=== PATIENT | female | born 1960 | race Caucasian/White ===

== ENCOUNTER 2019-11-24 14:34 | Inpatient (IN) | payer MEDICAID ==
[~2019-11-24] VITALS: Ht 157.5 cm; Wt 109.5 kg
[2019-11-24 15:31] LABS: BASOPHILS # (AUTO) 0.1 X10'3 (0-0.2); BASOPHILS % (AUTO) 1.2 % (0-1); EOSINOPHILS # (AUTO) 0.1 X10'3 (0-0.9); EOSINOPHILS % (AUTO) 1.4 % (0-6); HEMATOCRIT 37.6 % (35.0-45.0); HEMOGLOBIN 12.6 g/dl (12.0-16.0); LYMPHOCYTES # (AUTO) 1.7 X10'3 (1.1-4.8); MEAN CORPUSCULAR HEMOGLOBIN 40.2 PG (27.0-31.0); MEAN CORPUSCULAR HGB CONC 33.5 g/dL (33.0-36.5); MEAN PLATELET VOLUME 8.6 FL (7.4-10.4); MONOCYTES # (AUTO) 0.4 X10'3 (0-0.9); MONOCYTES % (AUTO) 4.5 % (2-12); NEUTROPHILS # (AUTO) 5.9 X10'3 (1.8-7.7); NEUTROPHILS % (AUTO) 71.9 % (42-75); PLATELET COUNT 240 X10'3 (140-440); RED BLOOD COUNT 3.14 X10'6 (4.20-5.60); RED CELL DISTRIBUTION WIDTH 16.1 % (11.5-14.5); WHITE BLOOD COUNT 8.2 X10'3 (4.5-11.0)
[2019-11-24 15:52] LABS: ALANINE AMINOTRANSFERASE 224 U/L (12-78); ALBUMIN 2.3 G/DL (3.4-5.0); ALBUMIN/GLOBULIN RATIO 0.6 (1.1-1.5); ALKALINE PHOSPHATASE 244 IU/L (46-116); ANION GAP 18 (8-16); ANISOCYTOSIS 1+; ASPARTATE AMINO TRANSFERASE 357 U/L (10-37); BILIRUBIN,TOTAL 0.9 MG/DL (0.1-1.0); BLOOD UREA NITROGEN 7 MG/DL (7-18); BUN/CREATININE RATIO 8.9 (6.6-38.0); CALCIUM 8.5 MG/DL (8.5-10.1); CHLORIDE 97 MMOL/L (99-107); CREATININE 0.79 MG/DL (0.40-0.90); GLUCOSE 154 MG/DL (70-104); LARGE PLATELETS FEW; PLATELET ESTIMATE NORMAL; POTASSIUM 3.6 MMOL/L (3.5-5.1); SODIUM 137 MMOL/L (135-145); TOTAL CARBON DIOXIDE 22.1 MMOL/L (24-32); TOTAL PROTEIN 6.1 G/DL (6.4-8.2); eGFR 74 ML/MIN
[2019-11-24 16:00] LABS: MAGNESIUM 1.7 MG/DL (1.5-2.4)
[2019-11-24] MEDS ORDERED: normal saline 1000ml 1,000 ML IV ONE ×2 (16:05→17:50)
[2019-11-24] MEDS ORDERED: thiamine 100mg/ml 2ml inj. IV ONE ×2 (16:05→18:00)
[2019-11-24] MEDS ORDERED: folic acid 1mg/0.2ml inj IV ONE (16:05)
[2019-11-24 16:08] LABS: CLARITY,URINE CLEAR (Clear); COLOR,URINE YELLOW (Yellow); GLUCOSE, URINE NEGATIVE (Neg); KETONES,URINE NEGATIVE (Neg); LEUKOCYTE ESTERASE ,URINE NEGATIVE (Neg); NITRITES, URINE NEGATIVE (Neg); OCCULT BLOOD,URINE LARGE (Neg); PROTEIN,URINE NEGATIVE (Neg)
[2019-11-24 16:13] LABS: UA COLLECTION TYPE STRAIGHT CATH
[2019-11-24 16:17] LABS: HYALINE CASTS 0-3 /LPF (NEGATIVE); MUCUS STRANDS FEW /LPF (Neg); SQUAMOUS EPITHELIAL CELL,UR MODERATE /LPF (FEW)
[2019-11-24 16:18] LABS: BACTERIA,URINE 1+ /HPF (Neg); RBC,URINE 50-100 /HPF (0-2); WBC,URINE 0-4 /HPF (0-4)
[2019-11-24 17:05] LABS: ETHANOL 0.068 GM/DL (0.0-0.010)
[2019-11-24] MEDS ORDERED: TRAZ-256 PO (17:58)
[2019-11-24] MEDS ORDERED: NICO-687 TP (17:58)
[2019-11-24] MEDS ORDERED: CHOL10002 PO (17:58)
[2019-11-24] MEDS ORDERED: ATEN50TA2 PO (17:58)
[2019-11-24] MEDS ORDERED: LEVO200T8 PO (17:58)
[2019-11-24] MEDS ORDERED: acetaminophen 650mg rectal suppository RC PRN (18:00)
[2019-11-24] MEDS ORDERED: potassium Cl 20 mEq SR tablet PO PRN ×2 (18:00)
[2019-11-24] MEDS ORDERED: magnesium Cl slow-release 64mg tablet PO PRN (18:00)
[2019-11-24] MEDS ORDERED: diphenhydrAMINE 50 mg/ml inj IV PRN (18:00)
[2019-11-24] MEDS ORDERED: ondansetron/PF 4mg/2ml inj IV PRN (18:00)
[2019-11-24] MEDS ORDERED: magnesium hydroxide 30ml (MOM) UD suspension PO PRN (18:00)
[2019-11-24] MEDS ORDERED: haloperidol 5mg tablet PO PRN (18:00)
[2019-11-24] MEDS ORDERED: potassium CL 10mEq/100ml bag 100 ML IV PRN ×2 (18:00)
[2019-11-24] MEDS ORDERED: morphine 2 MG/ML inj. syringe IV PRN ×2 (18:00)
[2019-11-24] MEDS ORDERED: haloperidol lactate 5mg/ml inj IM PRN (18:00)
[2019-11-24] MEDS ORDERED: magnesium 4gm in 100ml NS 100 ML IV PRN (18:00)
[2019-11-24] MEDS ORDERED: mag hydrox/Alum hydrox/simeth 30ml oral suspension PO PRN (18:00)
[2019-11-24] MEDS ORDERED: bisacodyl 10mg suppository rectal RC PRN (18:00)
[2019-11-24] MEDS ORDERED: magnesium 2GM in 50ml NS 50 ML IV PRN (18:00)
[2019-11-24] MEDS ORDERED: dextrose 50%-water 50ml dispensing syringe IV PRN (18:00)
[2019-11-24] MEDS ORDERED: diphenhydrAMINE 25mg capsule PO PRN (18:00)
[2019-11-24] MEDS ORDERED: metoclopramide 5 mg/ml inj IV PRN (18:00)
[2019-11-24] MEDS ORDERED: acetaminophen 325mg tablet PO PRN ×2 (18:00)
[2019-11-24 18:26] LABS: HEMOGLOBIN A1C 5.6 % (4.5-6.2)
[2019-11-24] MEDS: dextrose 5%-normal saline 1,000 ML IV SCH (19:13)
--- NOTE | 2019-11-24 19:47 | NUR ---
Patient in room ED 9. I have received report from Adolph IVEY and had the opportunity to ask questions and assume patient care.
[2019-11-24] MEDS: K and/or MAG REPLACEMENT MC SCH (20:00)
[2019-11-24] MEDS: LORazepam 2 mg/ml vial IV PRN (22:19)
[2019-11-24] MEDS: HYDROcodone/acetaminophen 5mg/325mg tablet PO PRN (22:22)
[2019-11-24] MEDS: traZODone 50mg tablet PO SCH (22:22)
[2019-11-24] MEDS: heparin, porcine 5000 units/ml vial SQ SCH (22:23)
[2019-11-24] MEDS: lactulose 20gm/30ml cup PO SCH (23:03)
[2019-11-25] MEDS: dextrose 5%-normal saline 1,000 ML IV SCH ×4 (00:40→21:38)
[2019-11-25 03:00] VITALS: BP 110/56
[2019-11-25] MEDS: lactulose 20gm/30ml cup PO SCH ×4 (03:02→21:37)
[2019-11-25] MEDS: LORazepam 2 mg/ml vial IV PRN ×3 (03:47→21:47)
[2019-11-25] MEDS: HYDROcodone/acetaminophen 10/325mg tab PO PRN ×3 (03:48→21:47)
[2019-11-25 03:54] LABS: BASOPHILS # (AUTO) 0.1 X10'3 (0-0.2); BASOPHILS % (AUTO) 0.8 % (0-1); EOSINOPHILS # (AUTO) 0.2 X10'3 (0-0.9); EOSINOPHILS % (AUTO) 1.8 % (0-6); HEMATOCRIT 35.6 % (35.0-45.0); HEMOGLOBIN 11.8 g/dl (12.0-16.0); LYMPHOCYTES # (AUTO) 2.1 X10'3 (1.1-4.8); LYMPHOCYTES % (AUTO) 25.5 % (21-51); MEAN CORPUSCULAR HEMOGLOBIN 39.6 PG (27.0-31.0); MEAN CORPUSCULAR HGB CONC 33.2 g/dL (33.0-36.5); MEAN CORPUSCULAR VOLUME 119.1 FL (78-98); MEAN PLATELET VOLUME 9.1 FL (7.4-10.4); MONOCYTES # (AUTO) 0.5 X10'3 (0-0.9); MONOCYTES % (AUTO) 5.8 % (2-12); NEUTROPHILS # (AUTO) 5.5 X10'3 (1.8-7.7); NEUTROPHILS % (AUTO) 66.1 % (42-75); PLATELET COUNT 232 X10'3 (140-440); RED BLOOD COUNT 2.99 X10'6 (4.20-5.60); RED CELL DISTRIBUTION WIDTH 16.2 % (11.5-14.5); WHITE BLOOD COUNT 8.4 X10'3 (4.5-11.0)
[2019-11-25 04:09] LABS: ALANINE AMINOTRANSFERASE 217 U/L (12-78); ALBUMIN 2.4 G/DL (3.4-5.0); ALBUMIN/GLOBULIN RATIO 0.7 (1.1-1.5); ALKALINE PHOSPHATASE 241 IU/L (46-116); AMYLASE 19 U/L (25-115); ANION GAP 9 (8-16); ASPARTATE AMINO TRANSFERASE 415 U/L (10-37); BILIRUBIN,TOTAL 1.2 MG/DL (0.1-1.0); BLOOD UREA NITROGEN 8 MG/DL (7-18); BUN/CREATININE RATIO 7.8 (6.6-38.0); CALCIUM 8.4 MG/DL (8.5-10.1); CHLORIDE 101 MMOL/L (99-107); CHOL/HDL RATIO 5.4 (0.00-4.99); CHOLESTEROL 215 MG/DL (0-200); CREATININE 1.02 MG/DL (0.40-0.90); GLUCOSE 114 MG/DL (70-104); HDL CHOLESTEROL 40 MG/DL (35-60); LDL CHOLESTEROL 113 MG/DL (50-100); MAGNESIUM 1.6 MG/DL (1.5-2.4); PHOSPHORUS 2.7 MG/DL (2.3-4.5); SODIUM 138 MMOL/L (135-145); TOTAL PROTEIN 5.9 G/DL (6.4-8.2); TRIGLYCERIDES 319 MG/DL (20-135); eGFR 55 ML/MIN
[2019-11-25 04:14] LABS: ANISOCYTOSIS 1+
[2019-11-25 04:45] LABS: PLATELET ESTIMATE NORMAL
[2019-11-25 06:00] VITALS: BP 145/60
--- NOTE | 2019-11-25 06:29 | NUR ---
Problems reprioritized. Patient report given, questions answered & plan of care reviewed with Ruel IVEY.
--- NOTE | 2019-11-25 06:36 | NUR ---
Patient in room PCU 3013. I have received report from Farhan IVEY and had the opportunity to ask questions and assume patient care.
[2019-11-25] MEDS: K and/or MAG REPLACEMENT MC SCH ×2 (08:00→20:00)
[2019-11-25] MEDS: nystatin 15 GM powder TP SCH ×3 (08:25→21:39)
[2019-11-25] MEDS: thiamine 100mg tablet PO SCH (08:26)
[2019-11-25] MEDS: levoTHYROXINE 100mcg tablet PO SCH (08:26)
[2019-11-25] MEDS: folic acid 1mg tablet PO SCH (08:26)
[2019-11-25] MEDS: multivitamins, therapeutics tablet PO SCH (08:26)
[2019-11-25] MEDS: vitamin D (cholecalciferol) 1,000 unit tablet PO SCH (08:26)
[2019-11-25] MEDS: nicotine 21mg patch - 24 hr TD SCH (08:27)
[2019-11-25] MEDS: heparin, porcine 5000 units/ml vial SQ SCH ×2 (08:27→21:38)
[2019-11-25] MEDS: atenolol 50mg tablet PO SCH (08:29)
--- NOTE | 2019-11-25 08:40 | NUR ---
PAGER ID: [phone] MESSAGE: [id number] Ramesh Miller: JANEL Lactic acid has increased to 6.0 from 3.4. thanks Britton
[2019-11-25 09:10] LABS: HIV ANTIBODY 1&2 RAPID NON-REACTIVE (Neg)
[2019-11-25] MEDS: levoTHYROXINE sod inj. 100mcg/5 ml vial IV SCH (10:40)
[2019-11-25 11:00] VITALS: BP 112/78
--- NOTE | 2019-11-25 13:15 | NUR ---
Paged Dr. Vasquez regarding Lactic acid of 4.5 PAGER ID: [phone] MESSAGE: [id number]. Ramesh Miller. Critical results of lactic acid of 4.5. Thank you. Rubi IVEY x [phone]
[2019-11-25] MEDS: piperacillin/tazo 3.375gm/50ml 50 ML IV SCH ×3 (13:50→23:58)
[2019-11-25] MEDS ORDERED: VANCOMYCIN 1,500MG inj. 1,500 MG in normal saline 500ml IV soln 500 ML IV SCH (14:00)
[2019-11-25 15:00] VITALS: BP 112/78
[2019-11-25] MEDS: VANCOMYCIN 1,500MG inj. 1,500 MG in normal saline 500ml IV soln 300 ML IV SCH (15:17)
--- NOTE | 2019-11-25 15:25 | NUR ---
PAGER ID: [phone] MESSAGE: [id number] Ramesh Miller: CT is asking if you want PO Contrast or just IV Contrast. thanks Britton [phone]
[2019-11-25] MEDS: diatr meglu/diatrizoate 30ml oral sol.-(3 dose) bottle PO SCH ×3 (15:44→19:59)
--- NOTE | 2019-11-25 17:30 | NUR ---
PAGER ID: [phone] MESSAGE: [id number] Ramesh Miller: JANEL Lactic Acid is 4.2, trending down. thanks gal
[2019-11-25 18:00] VITALS: BP 118/82
--- NOTE | 2019-11-25 18:25 | NUR ---
Problems reprioritized. Patient report given, questions answered & plan of care reviewed with Farhan RN.
[2019-11-25] MEDS ORDERED: iohexol 350MG/ML 100ml bottle IV ONE (19:54)
[2019-11-25] MEDS: traZODone 50mg tablet PO SCH (21:39)
[2019-11-25 22:00] VITALS: BP 123/57
[2019-11-26] MEDS: lactulose 20gm/30ml cup PO SCH ×4 (01:15→21:05)
[2019-11-26] MEDS: VANCOMYCIN 1,500MG inj. 1,500 MG in normal saline 500ml IV soln 300 ML IV SCH ×2 (01:15→13:40)
[2019-11-26 03:00] VITALS: BP 119/75
[2019-11-26] MEDS: dextrose 5%-normal saline 1,000 ML IV SCH ×3 (03:20→17:00)
[2019-11-26] MEDS: LORazepam 2 mg/ml vial IV PRN ×2 (03:46→13:51)
[2019-11-26 05:51] LABS: BASOPHILS # (AUTO) 0.1 X10'3 (0-0.2); BASOPHILS % (AUTO) 1.1 % (0-1); EOSINOPHILS # (AUTO) 0.1 X10'3 (0-0.9); EOSINOPHILS % (AUTO) 2.4 % (0-6); HEMATOCRIT 33.7 % (35.0-45.0); HEMOGLOBIN 10.9 g/dl (12.0-16.0); LYMPHOCYTES # (AUTO) 1.2 X10'3 (1.1-4.8); MEAN CORPUSCULAR HEMOGLOBIN 39.2 PG (27.0-31.0); MEAN CORPUSCULAR HGB CONC 32.5 g/dL (33.0-36.5); MEAN CORPUSCULAR VOLUME 120.8 FL (78-98); MEAN PLATELET VOLUME 8.9 FL (7.4-10.4); MONOCYTES # (AUTO) 0.3 X10'3 (0-0.9); MONOCYTES % (AUTO) 5.3 % (2-12); NEUTROPHILS # (AUTO) 4.3 X10'3 (1.8-7.7); NEUTROPHILS % (AUTO) 71.2 % (42-75); PLATELET COUNT 192 X10'3 (140-440); RED BLOOD COUNT 2.79 X10'6 (4.20-5.60); RED CELL DISTRIBUTION WIDTH 16.4 % (11.5-14.5); WHITE BLOOD COUNT 6.1 X10'3 (4.5-11.0)
[2019-11-26 06:00] VITALS: BP 108/78
[2019-11-26 06:05] LABS: ALANINE AMINOTRANSFERASE 229 U/L (12-78); ALBUMIN 2.2 G/DL (3.4-5.0); ALBUMIN/GLOBULIN RATIO 0.6 (1.1-1.5); ALKALINE PHOSPHATASE 216 IU/L (46-116); AMYLASE 16 U/L (25-115); ANION GAP 9 (8-16); ASPARTATE AMINO TRANSFERASE 400 U/L (10-37); BILIRUBIN,TOTAL 1.1 MG/DL (0.1-1.0); BLOOD UREA NITROGEN 4 MG/DL (7-18); BUN/CREATININE RATIO 4.7 (6.6-38.0); CALCIUM 8.4 MG/DL (8.5-10.1); CHLORIDE 103 MMOL/L (99-107); CREATININE 0.86 MG/DL (0.40-0.90); GLUCOSE 118 MG/DL (70-104); MAGNESIUM 1.8 MG/DL (1.5-2.4); PHOSPHORUS 3.4 MG/DL (2.3-4.5); POTASSIUM 4.2 MMOL/L (3.5-5.1); SODIUM 138 MMOL/L (135-145); TOTAL CARBON DIOXIDE 26.3 MMOL/L (24-32); TOTAL PROTEIN 5.6 G/DL (6.4-8.2); eGFR 67 ML/MIN
--- NOTE | 2019-11-26 06:30 | NUR ---
Patient in room PCU 3013. I have received report from Farhan IVEY and had the opportunity to ask questions and assume patient care.
--- NOTE | 2019-11-26 06:39 | NUR ---
Problems reprioritized. Patient report given, questions answered & plan of care reviewed with Ruel IVEY
[2019-11-26] MEDS: piperacillin/tazo 3.375gm/50ml 50 ML IV SCH ×2 (07:33→16:55)
[2019-11-26] MEDS: multivitamins, therapeutics tablet PO SCH (07:33)
[2019-11-26] MEDS: folic acid 1mg tablet PO SCH (07:33)
[2019-11-26] MEDS: atenolol 50mg tablet PO SCH (07:33)
[2019-11-26] MEDS: thiamine 100mg tablet PO SCH (07:34)
[2019-11-26] MEDS: vitamin D (cholecalciferol) 1,000 unit tablet PO SCH (07:34)
[2019-11-26] MEDS: nicotine 21mg patch - 24 hr TD SCH (07:34)
[2019-11-26] MEDS: levoTHYROXINE sod inj. 100mcg/5 ml vial IV SCH (07:35)
[2019-11-26] MEDS: K and/or MAG REPLACEMENT MC SCH ×2 (07:35→20:00)
[2019-11-26] MEDS: nystatin 15 GM powder TP SCH ×3 (07:35→21:06)
[2019-11-26] MEDS: heparin, porcine 5000 units/ml vial SQ SCH ×2 (07:40→21:05)
[2019-11-26 11:00] VITALS: BP 125/70
[2019-11-26] MEDS: HYDROcodone/acetaminophen 10/325mg tab PO PRN ×2 (13:51→19:37)
[2019-11-26 15:00] VITALS: BP 122/78
[2019-11-26 17:28] LABS: HBSAG SCREEN Negative (Negative); HEP A AB, IGM Negative (Negative); HEPATITIS C ANTIBODY <0.1 s/co ratio (0.0-0.9)
[2019-11-26 18:00] VITALS: BP 120/88
[2019-11-26] MEDS ORDERED: LORazepam 2 mg/ml vial IV PRN (18:00)
--- NOTE | 2019-11-26 18:29 | NUR ---
Problems reprioritized. Patient report given, questions answered & plan of care reviewed with Lea IVEY.
--- NOTE | 2019-11-26 18:33 | NUR ---
Patient in room PCU 3013. I have received report from Britton IVEY and had the opportunity to ask questions and assume patient care.
[2019-11-26] MEDS: LORazepam 1 MG tablet PO PRN ×2 (19:35→23:15)
[2019-11-26] MEDS: lactobacillus rhamnosus 10,000 MMU CELLS/CAPSULE PO SCH (21:05)
[2019-11-26] MEDS: traZODone 50mg tablet PO SCH (21:05)
[2019-11-26 22:00] VITALS: BP 107/72
[2019-11-27] MEDS: HYDROcodone/acetaminophen 10/325mg tab PO PRN ×4 (00:04→17:13)
[2019-11-27] MEDS: piperacillin/tazo 3.375gm/50ml 50 ML IV SCH ×3 (00:04→16:37)
[2019-11-27] MEDS ORDERED: VANCOMYCIN LEVEL IV ONE (01:30)
[2019-11-27 02:00] VITALS: BP 110/69
[2019-11-27] MEDS: LORazepam 1 MG tablet PO PRN ×3 (02:44→17:13)
[2019-11-27] MEDS: lactulose 20gm/30ml cup PO SCH ×4 (02:44→20:09)
[2019-11-27] MEDS: VANCOMYCIN 1,500MG inj. 1,500 MG in normal saline 500ml IV soln 300 ML IV SCH ×2 (02:44→13:37)
[2019-11-27 02:45] LABS: BASOPHILS % (AUTO) 0.5 % (0-1); EOSINOPHILS # (AUTO) 0.2 X10'3 (0-0.9); HEMATOCRIT 32.8 % (35.0-45.0); HEMOGLOBIN 10.5 g/dl (12.0-16.0); LYMPHOCYTES # (AUTO) 1.4 X10'3 (1.1-4.8); LYMPHOCYTES % (AUTO) 20.8 % (21-51); MEAN CORPUSCULAR HEMOGLOBIN 39.4 PG (27.0-31.0); MEAN CORPUSCULAR HGB CONC 32.2 g/dL (33.0-36.5); MEAN CORPUSCULAR VOLUME 122.5 FL (78-98); MEAN PLATELET VOLUME 8.9 FL (7.4-10.4); MONOCYTES # (AUTO) 0.5 X10'3 (0-0.9); MONOCYTES % (AUTO) 7.1 % (2-12); NEUTROPHILS # (AUTO) 4.5 X10'3 (1.8-7.7); NEUTROPHILS % (AUTO) 68.6 % (42-75); PLATELET COUNT 197 X10'3 (140-440); RED BLOOD COUNT 2.67 X10'6 (4.20-5.60); RED CELL DISTRIBUTION WIDTH 16.5 % (11.5-14.5); WHITE BLOOD COUNT 6.5 X10'3 (4.5-11.0)
[2019-11-27] MEDS: dextrose 5%-normal saline 1,000 ML IV SCH ×2 (02:51→09:21)
[2019-11-27 02:52] LABS: ALANINE AMINOTRANSFERASE 213 U/L (12-78); ALBUMIN 2.2 G/DL (3.4-5.0); ALBUMIN/GLOBULIN RATIO 0.7 (1.1-1.5); ALKALINE PHOSPHATASE 209 IU/L (46-116); ANION GAP 8 (8-16); ASPARTATE AMINO TRANSFERASE 330 U/L (10-37); BILIRUBIN,TOTAL 1.2 MG/DL (0.1-1.0); BLOOD UREA NITROGEN 3 MG/DL (7-18); BUN/CREATININE RATIO 2.9 (6.6-38.0); CALCIUM 8.5 MG/DL (8.5-10.1); CHLORIDE 106 MMOL/L (99-107); CREATININE 1.04 MG/DL (0.40-0.90); GLUCOSE 95 MG/DL (70-104); POTASSIUM 3.9 MMOL/L (3.5-5.1); SODIUM 141 MMOL/L (135-145); TOTAL CARBON DIOXIDE 27.3 MMOL/L (24-32); TOTAL PROTEIN 5.5 G/DL (6.4-8.2); eGFR 54 ML/MIN
[2019-11-27 03:01] LABS: AMYLASE 17 U/L (25-115); MAGNESIUM 1.7 MG/DL (1.5-2.4); PHOSPHORUS 2.9 MG/DL (2.3-4.5); VANCOMYCIN,TROUGH 18.8 UG/ML (6.0-14.0)
[2019-11-27 06:00] VITALS: BP 100/66
[2019-11-27] MEDS: multivitamins, therapeutics tablet PO SCH (07:48)
[2019-11-27] MEDS: folic acid 1mg tablet PO SCH (07:48)
[2019-11-27] MEDS: thiamine 100mg tablet PO SCH (07:49)
[2019-11-27] MEDS: lactobacillus rhamnosus 10,000 MMU CELLS/CAPSULE PO SCH ×2 (07:49→20:10)
[2019-11-27] MEDS: atenolol 50mg tablet PO SCH (07:51)
[2019-11-27] MEDS: heparin, porcine 5000 units/ml vial SQ SCH ×2 (07:58→20:10)
[2019-11-27] MEDS: vitamin D (cholecalciferol) 1,000 unit tablet PO SCH (07:58)
[2019-11-27 07:59] LABS: ANISOCYTOSIS 1+; PLATELET ESTIMATE NORMAL; POLYCHROMASIA 1+; STOMATOCYTES 1+; TOTAL CELLS COUNTED 100
[2019-11-27] MEDS: nystatin 15 GM powder TP SCH ×3 (07:59→20:10)
[2019-11-27] MEDS: nicotine 21mg patch - 24 hr TD SCH (07:59)
[2019-11-27] MEDS: K and/or MAG REPLACEMENT MC SCH ×2 (08:01→18:48)
--- NOTE | 2019-11-27 08:15 | NUR ---
Problems reprioritized. Patient report given, questions answered & plan of care reviewed with Magui IVEY.
[2019-11-27] MEDS: levoTHYROXINE sod inj. 100mcg/5 ml vial IV SCH (08:22)
[2019-11-27 11:00] VITALS: BP 107/68
[2019-11-27 15:00] VITALS: BP 112/71
[2019-11-27 18:00] VITALS: BP 100/55
[2019-11-27] MEDS: traZODone 50mg tablet PO SCH (20:09)
[2019-11-27 22:00] VITALS: BP 97/65
[2019-11-28] MEDS: piperacillin/tazo 3.375gm/50ml 50 ML IV SCH ×2 (00:19→08:40)
[2019-11-28] MEDS: dextrose 5%-normal saline 1,000 ML IV SCH ×2 (00:19→13:52)
[2019-11-28 02:00] VITALS: BP 102/63
[2019-11-28] MEDS: VANCOMYCIN 1,500MG inj. 1,500 MG in normal saline 500ml IV soln 300 ML IV SCH (02:37)
[2019-11-28] MEDS: lactulose 20gm/30ml cup PO SCH ×3 (02:37→15:14)
[2019-11-28] MEDS: LORazepam 1 MG tablet PO PRN ×3 (03:00→15:14)
[2019-11-28 04:37] LABS: BASOPHILS % (AUTO) 0.8 % (0-1); EOSINOPHILS # (AUTO) 0.2 X10'3 (0-0.9); EOSINOPHILS % (AUTO) 3.2 % (0-6); HEMATOCRIT 29.5 % (35.0-45.0); HEMOGLOBIN 9.6 g/dl (12.0-16.0); LYMPHOCYTES # (AUTO) 1.2 X10'3 (1.1-4.8); LYMPHOCYTES % (AUTO) 19.9 % (21-51); MEAN CORPUSCULAR HEMOGLOBIN 39.7 PG (27.0-31.0); MEAN CORPUSCULAR HGB CONC 32.3 g/dL (33.0-36.5); MEAN CORPUSCULAR VOLUME 122.8 FL (78-98); MEAN PLATELET VOLUME 8.5 FL (7.4-10.4); MONOCYTES # (AUTO) 0.5 X10'3 (0-0.9); MONOCYTES % (AUTO) 9.3 % (2-12); NEUTROPHILS # (AUTO) 3.9 X10'3 (1.8-7.7); NEUTROPHILS % (AUTO) 66.8 % (42-75); PLATELET COUNT 178 X10'3 (140-440); RED CELL DISTRIBUTION WIDTH 16.8 % (11.5-14.5); WHITE BLOOD COUNT 5.9 X10'3 (4.5-11.0)
[2019-11-28 04:51] LABS: ALANINE AMINOTRANSFERASE 190 U/L (12-78); ALBUMIN 1.9 G/DL (3.4-5.0); ALBUMIN/GLOBULIN RATIO 0.6 (1.1-1.5); ALKALINE PHOSPHATASE 196 IU/L (46-116); ANION GAP 8 (8-16); ASPARTATE AMINO TRANSFERASE 305 U/L (10-37); BILIRUBIN,TOTAL 1.2 MG/DL (0.1-1.0); BLOOD UREA NITROGEN 3 MG/DL (7-18); BUN/CREATININE RATIO 2.5 (6.6-38.0); CALCIUM 8.5 MG/DL (8.5-10.1); CHLORIDE 108 MMOL/L (99-107); CREATININE 1.21 MG/DL (0.40-0.90); GLUCOSE 91 MG/DL (70-104); MAGNESIUM 1.6 MG/DL (1.5-2.4); PHOSPHORUS 3.7 MG/DL (2.3-4.5); POTASSIUM 3.7 MMOL/L (3.5-5.1); SODIUM 140 MMOL/L (135-145); TOTAL CARBON DIOXIDE 24.5 MMOL/L (24-32); TOTAL PROTEIN 5.1 G/DL (6.4-8.2); eGFR 45 ML/MIN
--- NOTE | 2019-11-28 06:11 | NUR ---
Problems reprioritized. Patient report given, questions answered & plan of care reviewed with Connie IVEY and Jahaira IVEY.
[2019-11-28 07:00] VITALS: BP 101/66
[2019-11-28 07:23] LABS: PLATELET ESTIMATE NORMAL; SPHEROCYTES 1+; STOMATOCYTES 1+
[2019-11-28 07:24] LABS: POLYCHROMASIA 1+
[2019-11-28] MEDS: K and/or MAG REPLACEMENT MC SCH (08:00)
--- NOTE | 2019-11-28 08:04 | NUR ---
Rm.2018X, Rio, pt. refuses DNR band and request limited code with compressions and medicine only, no intubation. - wants code status changed. Thank you Jahaira [phone]
[2019-11-28] MEDS: HYDROcodone/acetaminophen 5mg/325mg tablet PO PRN (08:19)
[2019-11-28] MEDS: nystatin 15 GM powder TP SCH ×2 (08:19→13:52)
[2019-11-28] MEDS: multivitamins, therapeutics tablet PO SCH (08:20)
[2019-11-28] MEDS: lactobacillus rhamnosus 10,000 MMU CELLS/CAPSULE PO SCH (08:20)
[2019-11-28] MEDS: folic acid 1mg tablet PO SCH (08:20)
[2019-11-28] MEDS: heparin, porcine 5000 units/ml vial SQ SCH (08:20)
[2019-11-28] MEDS: vitamin D (cholecalciferol) 1,000 unit tablet PO SCH (08:21)
[2019-11-28] MEDS: nicotine 21mg patch - 24 hr TD SCH (08:22)
[2019-11-28] MEDS: levoTHYROXINE 100mcg tablet PO SCH (08:23)
[2019-11-28] MEDS: thiamine 100mg tablet PO SCH (08:24)
[2019-11-28] MEDS: atenolol 50mg tablet PO SCH (08:24)
[2019-11-28 11:00] VITALS: BP 89/55
[2019-11-28] MEDS ORDERED: VANCOMYCIN LEVEL IV ONE (13:30)
--- NOTE | 2019-11-28 14:01 | NUR ---
Rm. 3013B, JANEL Miller critical [facility] trough of 30.3. Pt will transfer 1600.Jahaira 2025
--- NOTE | 2019-11-28 17:48 | NUR ---
Orientee documentation: I have reviewed and agree with interventions, assessments performed and documented by Jahaira Giron. Orientee Medication Administration: For this medication-pass time frame, medication were reviewed, dispensed, administered and documented per hospital policy by Jahaira GIRON.
[2019-11-28] MEDS ORDERED: LORazepam 1 MG tablet PO PRN (18:00)
[2019-11-28] MEDS ORDERED: LORazepam 2 mg/ml vial IV PRN (18:00)
[2019-12-02] MEDS ORDERED: VANCOMYCIN LEVEL IV ONE (01:30)
== END 2019-11-28 16:11 | DRG 280 ==
LOC: ER 14:34 → ED HOLD 17:57 → PCU 3S 20:26
PROVIDERS: ADMIT Family Medicine; ATTEND Family Medicine
DX: K70.10 Alcoholic hepatitis without ascites (principal); E03.9 Hypothyroidism, unspecified; E66.01 Morbid (severe) obesity due to excess calories; E87.2 Acidosis; F10.229 Alcohol dependence with intoxication, unspecified; F17.210 Nicotine dependence, cigarettes, uncomplicated; I10 Essential (primary) hypertension; K76.0 Fatty (change of) liver, not elsewhere classified; Z79.890 Hormone replacement therapy; Z91.19 Patient's noncompliance with other medical treatment and regimen; Z71.6 Tobacco abuse counseling; Z68.41 Body mass index [BMI] 40.0-44.9, adult
CPT/HCPCS: 36415; 71045; 71275; 74177; 76536; 76700; 80053; 80061; 80202; 80320; 81001; 82140; 82150; 82948; 83036; 83605; 83735; 83880; 84100; 84145; 84439; 84443; 84480; 84484; 85007; 85025; 85610; 86703; 86705; 86706; 86709; 86803; 87040; 87077; 87081; 87186; 87340; 93005; 93306; 96374; 96375; 97110; 97112; 97116; 97161; 97530; 99285; G0378; J1644; J2060; J2543; J3370; J3411; J3490; J7030; J7040; J7042; Q9963; Q9967

== ENCOUNTER 2020-07-30 08:12 | Inpatient (IN) | payer MEDICAID ==
[~2020-07-30] VITALS: Ht 160 cm; Wt 127.3 kg
[~2020-07-30 08:12] MED LIST: ATEN50TA2 PO; CHOL-35 PO; LEVO200T8 PO; NICO-687 TP; TRAZ-256 PO
[2020-07-30 09:07] LABS: BASOPHILS % (AUTO) 0.3 % (0-1); EOSINOPHILS % (AUTO) 0.1 % (0-6); HEMOGLOBIN 12.3 g/dl (12.0-16.0); LYMPHOCYTES # (AUTO) 2.7 X10'3 (1.1-4.8); LYMPHOCYTES % (AUTO) 15.2 % (21-51); MEAN CORPUSCULAR HEMOGLOBIN 33.4 PG (27.0-31.0); MEAN CORPUSCULAR HGB CONC 32.3 g/dL (33.0-36.5); MEAN CORPUSCULAR VOLUME 103.3 FL (78-98); MEAN PLATELET VOLUME 9.2 FL (7.4-10.4); MONOCYTES # (AUTO) 0.7 X10'3 (0-0.9); MONOCYTES % (AUTO) 4.2 % (2-12); NEUTROPHILS # (AUTO) 14.3 X10'3 (1.8-7.7); NEUTROPHILS % (AUTO) 80.2 % (42-75); PLATELET COUNT 190 X10'3 (140-440); RED BLOOD COUNT 3.67 X10'6 (4.20-5.60); RED CELL DISTRIBUTION WIDTH 14.8 % (11.5-14.5); WHITE BLOOD COUNT 17.8 X10'3 (4.5-11.0)
[2020-07-30 09:18] LABS: ALANINE AMINOTRANSFERASE 74 U/L (12-78); ALBUMIN 2.8 G/DL (3.4-5.0); ALBUMIN/GLOBULIN RATIO 0.7 (1.1-1.5); ALKALINE PHOSPHATASE 381 IU/L (46-116); ANION GAP 21 (8-16); ASPARTATE AMINO TRANSFERASE 157 U/L (10-37); BILIRUBIN,TOTAL 1.2 MG/DL (0.1-1.0); BLOOD UREA NITROGEN 18 MG/DL (7-18); BUN/CREATININE RATIO 10.6 (6.6-38.0); CALCIUM 8.7 MG/DL (8.5-10.1); CHLORIDE 91 MMOL/L (99-107); ETHANOL < 0.010 GM/DL (0.0-0.010); GLUCOSE 150 MG/DL (70-104); SODIUM 130 MMOL/L (135-145); TOTAL CARBON DIOXIDE 18.3 MMOL/L (24-32); TOTAL PROTEIN 6.8 G/DL (6.4-8.2); eGFR 31 ML/MIN
[2020-07-30 09:20] LABS: POTASSIUM 2.8 MMOL/L (3.5-5.1)
[2020-07-30] MEDS ORDERED: CefTRIAXone 2gm/D5W 50ml BAG 50 ML IV ONE (10:10)
[2020-07-30] MEDS ORDERED: normal saline 1000ML IV soln IV ONE (10:10)
[2020-07-30 10:14] LABS: CLARITY,URINE CLOUDY (Clear); COLOR,URINE BROWN (Yellow); UA COLLECTION TYPE STRAIGHT CATH
[2020-07-30 10:25] LABS: MUCUS STRANDS MANY /LPF (Neg); SQUAMOUS EPITHELIAL CELL,UR FEW /LPF (FEW); TRANSITIONAL EPI CELLS,URINE MANY /HPF; URINE AMPHETAMINE SCREEN NEGATIVE (Neg); URINE BARBITUATE SCREEN NEGATIVE (Neg); URINE BENZODIAZEPINES SCREEN NEGATIVE (Neg); URINE CANNABINOID SCREEN POSITIVE (Neg); URINE COCAINE SCREEN NEGATIVE (Neg); URINE METHADONE SCREEN NEGATIVE (Neg); URINE OPIATE SCREEN NEGATIVE (Neg); URINE PHENCYCLIDINE SCREEN NEGATIVE (Neg)
[2020-07-30 10:26] LABS: CELLULAR CAST 0-4 /LPF (NEGATIVE); COARSE GRANULAR CAST 0-3 /LPF (NEGATIVE); FINE GRANULAR CAST 0-3 /LPF (NEGATIVE)
[2020-07-30 10:27] LABS: RENAL CELLS, URINE MANY /HPF
[2020-07-30 10:31] LABS: BACTERIA,URINE FEW /HPF (Neg)
[2020-07-30 10:33] LABS: AMORPHOUS URATES 1+
--- NOTE | 2020-07-30 10:57 | NUR ---
VS UPDATED, O2 SAT 100% ON 1L. 02 REMOVED AT THIS TIME
[2020-07-30] MEDS: potassium Cl 10 mEq/100mL bag IV SCH ×2 (11:30→12:28)
[2020-07-30] MEDS ORDERED: LIDOcaine 2% 10ml TOPICAL JELLY (Urojet) TP ONE (11:45)
[2020-07-30] MEDS ORDERED: magnesium hydroxide 30ml (MOM) UD suspension PO PRN (11:45)
[2020-07-30] MEDS ORDERED: morphine 4 MG/ML inj SYRINge IV PRN (11:45)
[2020-07-30] MEDS ORDERED: morphine 2 MG/ML inj. syringe IV PRN (11:45)
[2020-07-30] MEDS ORDERED: acetaminophen 325mg tablet PO PRN (11:45)
[2020-07-30] MEDS ORDERED: ondansetron/PF 4mg/2ml inj IV PRN (11:45)
[2020-07-30] MEDS: ringers solution, lacted 1,000 ML IV SCH ×3 (12:29→21:46)
[2020-07-30] MEDS ORDERED: LEVO50TA8 PO (12:39)
--- NOTE | 2020-07-30 14:34 | NUR ---
DR PROCTOR CALLED AND NOTIFIED THAT PT'S BP WAS 75/56 AND 86/63 AFTER CUFF WAS READJUSTED AND BP RETAKEN. NEW ORDER FOR LITER OF NS A BOLUS WAS RECEIVED AND STARTED. DR PROCTOR INSISTED THAT NURSING WAX PATTERN ASSEMBLER BE NOTIFIED THAT PT NEED ICU BED IMMEDIATELY. NURSING WAX PATTERN ASSEMBLER NOTIFIED.
[2020-07-30] MEDS ORDERED: normal saline 1000ml 1,000 ML IV ONE ×2 (14:35→16:20)
--- NOTE | 2020-07-30 15:15 | NUR ---
Ariella simeon in ED - 07/30/20 at 1519 by GOPAL PT IS AWAKE AND ALERT, AMBULATED TO BATHROOM WITHOUT ASSISTANCE, CALLED HIS ROOM MATE AND WAS GIVEN SOMETHING TO EAT.
[2020-07-30] MEDS ORDERED: potassium Cl 20 mEq SR tablet PO PRN (16:15)
[2020-07-30] MEDS: piperacillin/tazo 3.375gm/50ml 50 ML IV SCH (16:30)
[2020-07-30] MEDS: K, MAG and/or Phos replacement - Verify level? MC SCH (17:26)
[2020-07-30 19:50] VITALS: BP 138/62
[2020-07-30 20:00] VITALS: BP 141/119
[2020-07-30 20:21] LABS: ANION GAP 17 (8-16); BLOOD UREA NITROGEN 14 MG/DL (7-18); BUN/CREATININE RATIO 11.9 (6.6-38.0); CALCIUM 7.2 MG/DL (8.5-10.1); CHLORIDE 101 MMOL/L (99-107); CREATININE 1.18 MG/DL (0.40-0.90); GLUCOSE 120 MG/DL (70-104); MAGNESIUM 1.3 MG/DL (1.5-2.4); SODIUM 138 MMOL/L (135-145); TOTAL CARBON DIOXIDE 19.7 MMOL/L (24-32); eGFR 47 ML/MIN
--- NOTE | 2020-07-30 20:21 | NUR ---
Patient in room ICU 2042. I have received report from grace moran and had the opportunity to ask questions and assume patient care. pt arrived on gurney to icu.
[2020-07-30 21:00] VITALS: BP 97/79
--- NOTE | 2020-07-30 21:20 | NUR ---
pt has 2 moderate size liquid bm's this evening. cdiff sample was sent.
--- NOTE | 2020-07-30 21:24 | NUR ---
notified dr butler to get electrolyte protocol on pt
[2020-07-30] MEDS ORDERED: magnesium 4gm in 100ml NS 100 ML IV PRN (21:25)
[2020-07-30] MEDS ORDERED: magnesium 2GM in 50ml NS 50 ML IV PRN (21:25)
[2020-07-30 22:00] VITALS: BP 126/95
--- NOTE | 2020-07-30 22:10 | NUR ---
pt goes back and forth between afib and sr. potassium and magnesium are currently being replaced
--- NOTE | 2020-07-30 22:37 | NUR ---
notfied dr lambert about lactic going from 5.2 to 5.4. got order to change lactated ringers to normal saline at 125ml/hr
[2020-07-30] MEDS: normal saline 1000ml 1,000 ML IV SCH (22:44)
[2020-07-30] MEDS: potassium Cl 40MEQ/1/2NS 520ml 520 ML IV PRN (22:57)
[2020-07-30 23:00] VITALS: BP 103/78
[2020-07-31] VITALS (21 sets, daily range): BP systolic 90–117; BP diastolic 42–79
[2020-07-31] MEDS: piperacillin/tazo 3.375gm/50ml 50 ML IV SCH ×4 (00:23→23:22)
--- NOTE | 2020-07-31 06:01 | NUR ---
Problems reprioritized. Patient report given, questions answered & plan of care reviewed with daisy moran.
[2020-07-31 06:09] LABS: BASOPHILS % (AUTO) 0.3 % (0-1); EOSINOPHILS # (AUTO) 0.1 X10'3 (0-0.9); EOSINOPHILS % (AUTO) 0.5 % (0-6); HEMATOCRIT 30.7 % (35.0-45.0); HEMOGLOBIN 10.1 g/dl (12.0-16.0); LYMPHOCYTES # (AUTO) 2.2 X10'3 (1.1-4.8); LYMPHOCYTES % (AUTO) 15.6 % (21-51); MEAN CORPUSCULAR HGB CONC 32.8 g/dL (33.0-36.5); MEAN CORPUSCULAR VOLUME 103.5 FL (78-98); MEAN PLATELET VOLUME 9.6 FL (7.4-10.4); MONOCYTES # (AUTO) 0.6 X10'3 (0-0.9); MONOCYTES % (AUTO) 4.6 % (2-12); PLATELET COUNT 111 X10'3 (140-440); RED BLOOD COUNT 2.96 X10'6 (4.20-5.60); RED CELL DISTRIBUTION WIDTH 15.2 % (11.5-14.5)
[2020-07-31 06:16] LABS: ALANINE AMINOTRANSFERASE 66 U/L (12-78); ALBUMIN 2.1 G/DL (3.4-5.0); ALBUMIN/GLOBULIN RATIO 0.7 (1.1-1.5); ALKALINE PHOSPHATASE 259 IU/L (46-116); ANION GAP 15 (8-16); ASPARTATE AMINO TRANSFERASE 219 U/L (10-37); BILIRUBIN,TOTAL 0.7 MG/DL (0.1-1.0); BLOOD UREA NITROGEN 11 MG/DL (7-18); BUN/CREATININE RATIO 10.8 (6.6-38.0); CALCIUM 7.2 MG/DL (8.5-10.1); CHLORIDE 103 MMOL/L (99-107); CREATININE 1.02 MG/DL (0.40-0.90); GLUCOSE 115 MG/DL (70-104); MAGNESIUM 2.3 MG/DL (1.5-2.4); PHOSPHORUS 2.9 MG/DL (2.3-4.5); POTASSIUM 3.2 MMOL/L (3.5-5.1); SODIUM 139 MMOL/L (135-145); TOTAL CARBON DIOXIDE 21.5 MMOL/L (24-32); TOTAL PROTEIN 5.3 G/DL (6.4-8.2); eGFR 55 ML/MIN
[2020-07-31] MEDS: normal saline 1000ml 1,000 ML IV SCH ×3 (07:44→19:26)
[2020-07-31] MEDS: K, MAG and/or Phos replacement - Verify level? MC SCH (08:00)
[2020-07-31] MEDS: potassium Cl 40MEQ/1/2NS 520ml 520 ML IV PRN (09:27)
[2020-07-31] MEDS ORDERED: folic acid 1mg/0.2ml inj IV SCH (11:04)
[2020-07-31] MEDS ORDERED: thiamine inj. 100 MG in normal saline 100ml IV soln 99 ML IV SCH (11:04)
[2020-07-31] MEDS: enoxaparin 40mg/0.4ml syringe SQ SCH ×2 (11:37→19:24)
[2020-07-31] MEDS: famotidine/PF 10 mg/ml inj IV SCH ×2 (11:37→19:24)
[2020-07-31] MEDS ORDERED: vancomycin/NS 1 GM ADD-VANTAGE 250 ML IV SCH (12:00)
[2020-07-31 12:08] LABS: C DIFF ANTIGEN POSITIVE (NEGATIVE); C DIFF SPECIMEN=DIARRHEA? ACCEPTABLE; C DIFFICILE TOXINS A&B NEGATIVE (Neg)
[2020-07-31 12:13] LABS: C DIFF TOXIN (LAMP) POSITIVE (NEG)
--- NOTE | 2020-07-31 12:22 | NUR ---
Call recieved from Lab, patient stool positive for c-diff. Dr. Espinoza notified. new order to stop IV Vanco and Pharmacy to dose PO Vanco. Contact isolation placed in doorway.
[2020-07-31] MEDS: nicotine 21mg patch - 24 hr TD SCH (15:31)
[2020-07-31] MEDS: vancomycin 125mg/5ml ORAL solution 5ml UD bottle PO SCH ×2 (15:59→19:24)
--- NOTE | 2020-07-31 19:00 | NUR ---
Patient in room ICU 2042. I have received report from TASHA IVEY and had the opportunity to ask questions and assume patient care. PT ALSO HAD ANOTHER LOOSE BM
--- NOTE | 2020-07-31 20:46 | NUR ---
Problems reprioritized. Patient report given, questions answered & plan of care reviewed with NATA IVEY. PT WAS TAKEN UP WITH STABLE VITALS AND PERSONAL BELONGINGS TO ORTHO NEURO IN BED BY TRANSFORMER MAKER AND INCLUSION MANAGER.
[2020-07-31] MEDS ORDERED: thiamine inj. 100 MG in normal saline 100ml IV soln 100 ML IV SCH (21:53)
[2020-08-01] MEDS: vancomycin 125mg/5ml ORAL solution 5ml UD bottle PO SCH ×4 (01:24→20:26)
[2020-08-01] MEDS: normal saline 1000ml 1,000 ML IV SCH ×3 (01:24→21:30)
[2020-08-01 06:00] VITALS: BP 96/55
[2020-08-01 06:43] LABS: BASOPHILS % (AUTO) 0.4 % (0-1); EOSINOPHILS # (AUTO) 0.1 X10'3 (0-0.9); EOSINOPHILS % (AUTO) 1.2 % (0-6); HEMATOCRIT 25.5 % (35.0-45.0); HEMOGLOBIN 8.3 g/dl (12.0-16.0); LYMPHOCYTES # (AUTO) 2.5 X10'3 (1.1-4.8); LYMPHOCYTES % (AUTO) 22.8 % (21-51); MEAN CORPUSCULAR HEMOGLOBIN 34.3 PG (27.0-31.0); MEAN CORPUSCULAR HGB CONC 32.7 g/dL (33.0-36.5); MEAN PLATELET VOLUME 9.6 FL (7.4-10.4); MONOCYTES # (AUTO) 0.6 X10'3 (0-0.9); MONOCYTES % (AUTO) 5.2 % (2-12); NEUTROPHILS # (AUTO) 7.6 X10'3 (1.8-7.7); NEUTROPHILS % (AUTO) 70.4 % (42-75); PLATELET COUNT 85 X10'3 (140-440); RED BLOOD COUNT 2.43 X10'6 (4.20-5.60); RED CELL DISTRIBUTION WIDTH 15.2 % (11.5-14.5); WHITE BLOOD COUNT 10.9 X10'3 (4.5-11.0)
--- NOTE | 2020-08-01 06:45 | NUR ---
Problems reprioritized. Patient report given, questions answered & plan of care reviewed with LONI LAZAR.
--- NOTE | 2020-08-01 06:45 | NUR ---
Patient in room ORTHO 4013. I have received report from Lorena IVEY and had the opportunity to ask questions and assume patient care.
[2020-08-01 06:49] LABS: ALANINE AMINOTRANSFERASE 56 U/L (12-78); ALBUMIN 1.8 G/DL (3.4-5.0); ALBUMIN/GLOBULIN RATIO 0.6 (1.1-1.5); ALKALINE PHOSPHATASE 212 IU/L (46-116); ANION GAP 11 (8-16); ASPARTATE AMINO TRANSFERASE 170 U/L (10-37); BILIRUBIN,TOTAL 0.5 MG/DL (0.1-1.0); BLOOD UREA NITROGEN 7 MG/DL (7-18); BUN/CREATININE RATIO 8.5 (6.6-38.0); CALCIUM 6.9 MG/DL (8.5-10.1); CHLORIDE 110 MMOL/L (99-107); CREATININE 0.82 MG/DL (0.40-0.90); GLUCOSE 85 MG/DL (70-104); POTASSIUM 3.1 MMOL/L (3.5-5.1); SODIUM 143 MMOL/L (135-145); TOTAL CARBON DIOXIDE 22.3 MMOL/L (24-32); TOTAL PROTEIN 4.6 G/DL (6.4-8.2); eGFR 71 ML/MIN
[2020-08-01] MEDS: enoxaparin 40mg/0.4ml syringe SQ SCH ×2 (08:00→20:00)
[2020-08-01] MEDS: K, MAG and/or Phos replacement - Verify level? MC SCH (08:00)
[2020-08-01] MEDS: famotidine/PF 10 mg/ml inj IV SCH (08:36)
[2020-08-01] MEDS: nicotine 21mg patch - 24 hr TD SCH (08:36)
[2020-08-01 10:00] VITALS: BP 102/98
[2020-08-01] MEDS: piperacillin/tazo 3.375gm/50ml 50 ML IV SCH ×2 (10:30→16:15)
[2020-08-01] MEDS: potassium Cl 20 mEq SR tablet PO PRN ×2 (13:58→20:03)
[2020-08-01] MEDS: folic acid 1mg tablet PO SCH (13:58)
--- NOTE | 2020-08-01 18:24 | NUR ---
Problems reprioritized. Patient report given, questions answered & plan of care reviewed with Mariluz IVEY.
[2020-08-01] MEDS: lactobacillus rhamnosus 10,000 MMU CELLS/CAPSULE PO SCH (20:26)
[2020-08-01] MEDS: famotidine 20mg tablet PO SCH (20:26)
[2020-08-01 22:00] VITALS: BP 110/74
[2020-08-02] MEDS: potassium Cl 20 mEq SR tablet PO PRN ×4 (01:46→19:49)
[2020-08-02] MEDS: piperacillin/tazo 3.375gm/50ml 50 ML IV SCH ×2 (01:52→08:59)
[2020-08-02] MEDS: vancomycin 125mg/5ml ORAL solution 5ml UD bottle PO SCH ×4 (01:54→19:48)
[2020-08-02] MEDS: normal saline 1000ml 1,000 ML IV SCH ×2 (04:36→15:04)
[2020-08-02 06:00] VITALS: BP 93/60
[2020-08-02 06:19] LABS: BASOPHILS % (AUTO) 0.4 % (0-1); EOSINOPHILS # (AUTO) 0.1 X10'3 (0-0.9); EOSINOPHILS % (AUTO) 1.1 % (0-6); HEMATOCRIT 24.5 % (35.0-45.0); HEMOGLOBIN 7.9 g/dl (12.0-16.0); LYMPHOCYTES # (AUTO) 2.5 X10'3 (1.1-4.8); LYMPHOCYTES % (AUTO) 28.5 % (21-51); MEAN CORPUSCULAR HEMOGLOBIN 34.6 PG (27.0-31.0); MEAN CORPUSCULAR HGB CONC 32.4 g/dL (33.0-36.5); MEAN CORPUSCULAR VOLUME 106.7 FL (78-98); MEAN PLATELET VOLUME 9.5 FL (7.4-10.4); MONOCYTES # (AUTO) 0.7 X10'3 (0-0.9); MONOCYTES % (AUTO) 8.2 % (2-12); NEUTROPHILS # (AUTO) 5.4 X10'3 (1.8-7.7); NEUTROPHILS % (AUTO) 61.8 % (42-75); PLATELET COUNT 83 X10'3 (140-440); RED CELL DISTRIBUTION WIDTH 15.4 % (11.5-14.5); WHITE BLOOD COUNT 8.8 X10'3 (4.5-11.0)
[2020-08-02 06:35] LABS: ALANINE AMINOTRANSFERASE 59 U/L (12-78); ALBUMIN 1.9 G/DL (3.4-5.0); ALBUMIN/GLOBULIN RATIO 0.7 (1.1-1.5); ALKALINE PHOSPHATASE 236 IU/L (46-116); ANION GAP 12 (8-16); ASPARTATE AMINO TRANSFERASE 162 U/L (10-37); BILIRUBIN,TOTAL 0.5 MG/DL (0.1-1.0); BLOOD UREA NITROGEN 6 MG/DL (7-18); BUN/CREATININE RATIO 6.7 (6.6-38.0); CALCIUM 7.3 MG/DL (8.5-10.1); CHLORIDE 110 MMOL/L (99-107); CREATININE 0.89 MG/DL (0.40-0.90); GLUCOSE 87 MG/DL (70-104); POTASSIUM 3.2 MMOL/L (3.5-5.1); SODIUM 144 MMOL/L (135-145); TOTAL CARBON DIOXIDE 21.6 MMOL/L (24-32); TOTAL PROTEIN 4.7 G/DL (6.4-8.2); eGFR 64 ML/MIN
[2020-08-02] MEDS: enoxaparin 40mg/0.4ml syringe SQ SCH ×2 (08:00→19:49)
[2020-08-02 08:10] LABS: LARGE PLATELETS FEW; PLATELET ESTIMATE DECREASED
[2020-08-02 08:11] LABS: STOMATOCYTES FEW
[2020-08-02] MEDS: nicotine 21mg patch - 24 hr TD SCH (08:59)
[2020-08-02] MEDS: lactobacillus rhamnosus 10,000 MMU CELLS/CAPSULE PO SCH ×2 (09:00→19:48)
[2020-08-02] MEDS: multivitamins, therapeutics tablet PO SCH (09:00)
[2020-08-02] MEDS: folic acid 1mg tablet PO SCH (09:00)
[2020-08-02] MEDS: famotidine 20mg tablet PO SCH ×2 (09:00→19:49)
[2020-08-02] MEDS: thiamine 100mg tablet PO SCH (09:00)
[2020-08-02 10:00] VITALS: BP 87/57
[2020-08-02 11:30] VITALS: BP 91/53
[2020-08-02] MEDS ORDERED: VANCOMYCIN LEVEL IV ONE (11:30)
--- NOTE | 2020-08-02 12:51 | NUR ---
PAGER ID: [phone] MESSAGE: Tamara Miller 4013B: FYI... patients BP has been trending low today, SBP 70's. last one . jordon [phone]
[2020-08-02 18:00] VITALS: BP 95/68
--- NOTE | 2020-08-02 18:30 | NUR ---
Patient in room ORTHO 4013. I have received report from LONI Petty and had the opportunity to ask questions and assume patient care.
--- NOTE | 2020-08-02 18:39 | NUR ---
Problems reprioritized. Patient report given, questions answered & plan of care reviewed with LONI LUGO.
[2020-08-02 22:00] VITALS: BP 107/58
[2020-08-03] MEDS: vancomycin 125mg/5ml ORAL solution 5ml UD bottle PO SCH ×4 (01:49→19:46)
[2020-08-03 06:00] VITALS: BP 118/69
--- NOTE | 2020-08-03 06:40 | NUR ---
Problems reprioritized. Patient report given, questions answered & plan of care reviewed with LONI Trevino.
[2020-08-03 06:54] LABS: BASOPHILS % (AUTO) 0.3 % (0-1); EOSINOPHILS # (AUTO) 0.1 X10'3 (0-0.9); HEMATOCRIT 24.8 % (35.0-45.0); LYMPHOCYTES # (AUTO) 2.4 X10'3 (1.1-4.8); LYMPHOCYTES % (AUTO) 24.5 % (21-51); MEAN CORPUSCULAR HEMOGLOBIN 34.8 PG (27.0-31.0); MEAN CORPUSCULAR HGB CONC 32.3 g/dL (33.0-36.5); MEAN CORPUSCULAR VOLUME 107.6 FL (78-98); MEAN PLATELET VOLUME 9.2 FL (7.4-10.4); MONOCYTES # (AUTO) 0.9 X10'3 (0-0.9); NEUTROPHILS # (AUTO) 6.5 X10'3 (1.8-7.7); NEUTROPHILS % (AUTO) 65.2 % (42-75); PLATELET COUNT 94 X10'3 (140-440); RED CELL DISTRIBUTION WIDTH 15.4 % (11.5-14.5); WHITE BLOOD COUNT 9.9 X10'3 (4.5-11.0)
[2020-08-03 07:16] LABS: ALANINE AMINOTRANSFERASE 58 U/L (12-78); ALBUMIN 1.8 G/DL (3.4-5.0); ALBUMIN/GLOBULIN RATIO 0.6 (1.1-1.5); ALKALINE PHOSPHATASE 231 IU/L (46-116); ANION GAP 13 (8-16); ASPARTATE AMINO TRANSFERASE 141 U/L (10-37); BILIRUBIN,TOTAL 0.4 MG/DL (0.1-1.0); BLOOD UREA NITROGEN 4 MG/DL (7-18); BUN/CREATININE RATIO 5.8 (6.6-38.0); CALCIUM 7.9 MG/DL (8.5-10.1); CHLORIDE 112 MMOL/L (99-107); CREATININE 0.69 MG/DL (0.40-0.90); GLUCOSE 86 MG/DL (70-104); POTASSIUM 3.5 MMOL/L (3.5-5.1); SODIUM 144 MMOL/L (135-145); TOTAL CARBON DIOXIDE 19.3 MMOL/L (24-32); TOTAL PROTEIN 4.7 G/DL (6.4-8.2); eGFR 86 ML/MIN
[2020-08-03] MEDS: enoxaparin 40mg/0.4ml syringe SQ SCH ×2 (07:21→20:00)
[2020-08-03] MEDS: thiamine 100mg tablet PO SCH (09:50)
[2020-08-03] MEDS: lactobacillus rhamnosus 10,000 MMU CELLS/CAPSULE PO SCH ×2 (09:50→19:47)
[2020-08-03] MEDS: famotidine 20mg tablet PO SCH ×2 (09:50→19:47)
[2020-08-03] MEDS: multivitamins, therapeutics tablet PO SCH (09:50)
[2020-08-03] MEDS: nicotine 21mg patch - 24 hr TD SCH (09:51)
[2020-08-03] MEDS: folic acid 1mg tablet PO SCH (09:51)
[2020-08-03 10:00] VITALS: BP 102/66
--- NOTE | 2020-08-03 13:50 | NUR ---
I WAS NOTIFIED BY A STAFF MEMBER THAT PT WAS FOUND ON THE GROUND AT APPROX 1335. TIME OF FALL IS UNKNOWN THERE WERE NO WITNESSES TO IT. WHEN I RESPONDED TO THE ROOM 3 STAFF MEMBERS WERE AT BEDSIDE. WE WERE ABLE TO GET PT FROM FLOOR TO BED. NO NEW VISIBLE INJURIES WERE OBSERVED, NO NEW COMPLAINTS OF PAIN FROM PT. PT STATED THAT SHE TRIED TO STAND FROM CHAIR AND FELL, PER PT SHE WAS NOT ON THE FLOOR VERY LONG BEFORE STAFF MEMBER FOUND HER. PAGED TO NOTIFY. WILL COMPLETE OCCURRENCE REPORT. PAGED DR GRACIA RE: PAGER ID: [phone] MESSAGE: LEISA GAONA. PT SLIPPED FROM CHAIR AND FELL TO GROUND. NO VISIBLE INJURIES, NO PAIN REPORTED. O/N KALEY [id number]
--- NOTE | 2020-08-03 14:12 | NUR ---
PT UP IN CHAIR WHEN I RETURNED FROM LUNCH 1315, CHARTING TIME OF 1324 DOES NOT REFLECT THIS TIME CORRECTLY. Addendum: 08/03/20 at 1414 by Ema Lewis RN Amended: Links added.
--- NOTE | 2020-08-03 14:55 | NUR ---
Initial: Pt admitted for worsening confusion and weakness over the last two weeks. Pt has refused all meals on a clear liquid diet. After diet advanced to full liquid diet Pt PO intake was 25% at first meal and 100% at breakfast this AM. Pt partially meeting needs. Pt receiving routine Thiamine, Folic acid and MVI for EtOH history. Last BM 08/03 documented as diarrhea with c. diff. Will continue to follow PO intake as diet advances. Recommendations: 1. Advance diet to heart healthy as medically indicated 2. Continue routine Thiamine, folic acid and MVI for EtOH hx with elevated MCV. 3. Monitor need for ONS 4. Bowel care per rx 5. Weekly wts Addendum: 08/03/20 at [address] Amended: Links added. Addendum: 08/03/20 at [address] I have reviewed and agree with note by technology internship. Bouchra Rojas, RD
[2020-08-03 17:44] VITALS: BP_SYST 109; BP_SYST 110; BP_SYST 88; BP_DIAS 55; BP_DIAS 66; BP_DIAS 67
--- NOTE | 2020-08-03 17:50 | NUR ---
PAGED DR GRACIA RE: PAGER ID: [phone] MESSAGE: LEISA GAONA. POSITIVE ORTHOSTATICS. 109/66 SUPINE 88/55 SITTING 110/67 STAND. O/N KALEY 0120
[2020-08-03 18:00] VITALS: BP 102/65
--- NOTE | 2020-08-03 18:24 | NUR ---
Patient in room ORTHO 4013. I have received report from LONI Trevino and had the opportunity to ask questions and assume patient care.
--- NOTE | 2020-08-03 18:33 | NUR ---
Problems reprioritized. Patient report given, questions answered & plan of care reviewed with GADIEL IVEY.
[2020-08-03] MEDS: normal saline 1000ml 1,000 ML IV SCH (19:46)
[2020-08-03 20:00] VITALS: BP_SYST 105; BP_SYST 114; BP_DIAS 59
[2020-08-03] MEDS: nystatin 15 GM powder TP SCH (21:38)
[2020-08-03 22:00] VITALS: BP 105/59
[2020-08-04] MEDS: vancomycin 125mg/5ml ORAL solution 5ml UD bottle PO SCH ×4 (02:06→21:03)
[2020-08-04] MEDS: normal saline 1000ml 1,000 ML IV SCH (04:59)
[2020-08-04 06:00] VITALS: BP 94/56
--- NOTE | 2020-08-04 06:03 | NUR ---
Problems reprioritized. Patient report given, questions answered & plan of care reviewed with LONI Trevino.
[2020-08-04 06:35] LABS: BASOPHILS % (AUTO) 0.4 % (0-1); EOSINOPHILS # (AUTO) 0.1 X10'3 (0-0.9); EOSINOPHILS % (AUTO) 1.2 % (0-6); HEMATOCRIT 24.6 % (35.0-45.0); HEMOGLOBIN 7.9 g/dl (12.0-16.0); LYMPHOCYTES # (AUTO) 2.7 X10'3 (1.1-4.8); LYMPHOCYTES % (AUTO) 26.3 % (21-51); MEAN CORPUSCULAR HEMOGLOBIN 34.7 PG (27.0-31.0); MEAN CORPUSCULAR HGB CONC 31.9 g/dL (33.0-36.5); MEAN CORPUSCULAR VOLUME 108.7 FL (78-98); MEAN PLATELET VOLUME 8.9 FL (7.4-10.4); MONOCYTES % (AUTO) 9.6 % (2-12); NEUTROPHILS # (AUTO) 6.5 X10'3 (1.8-7.7); NEUTROPHILS % (AUTO) 62.5 % (42-75); PLATELET COUNT 107 X10'3 (140-440); RED BLOOD COUNT 2.26 X10'6 (4.20-5.60); RED CELL DISTRIBUTION WIDTH 15.6 % (11.5-14.5); WHITE BLOOD COUNT 10.4 X10'3 (4.5-11.0)
[2020-08-04] MEDS: enoxaparin 40mg/0.4ml syringe SQ SCH ×2 (07:01→20:00)
[2020-08-04 07:06] LABS: ALANINE AMINOTRANSFERASE 57 U/L (12-78); ALBUMIN 1.7 G/DL (3.4-5.0); ALBUMIN/GLOBULIN RATIO 0.6 (1.1-1.5); ALKALINE PHOSPHATASE 234 IU/L (46-116); ANION GAP 14 (8-16); ASPARTATE AMINO TRANSFERASE 115 U/L (10-37); BILIRUBIN,TOTAL 0.4 MG/DL (0.1-1.0); BLOOD UREA NITROGEN 4 MG/DL (7-18); BUN/CREATININE RATIO 5.5 (6.6-38.0); CALCIUM 7.9 MG/DL (8.5-10.1); CHLORIDE 114 MMOL/L (99-107); CREATININE 0.73 MG/DL (0.40-0.90); GLUCOSE 82 MG/DL (70-104); POTASSIUM 3.5 MMOL/L (3.5-5.1); SODIUM 147 MMOL/L (135-145); TOTAL CARBON DIOXIDE 19.4 MMOL/L (24-32); TOTAL PROTEIN 4.5 G/DL (6.4-8.2); eGFR 81 ML/MIN
[2020-08-04 07:30] VITALS: BP_SYST 103; BP_SYST 129; BP_SYST 93; BP_DIAS 69; BP_DIAS 73; BP_DIAS 87
[2020-08-04] MEDS: nystatin 15 GM powder TP SCH ×3 (08:00→21:04)
[2020-08-04 08:24] LABS: PLATELET ESTIMATE DECREASED; TOTAL CELLS COUNTED 100
[2020-08-04 08:25] LABS: POLYCHROMASIA FEW; SCHISTOCYTES FEW
[2020-08-04] MEDS: thiamine 100mg tablet PO SCH (08:35)
[2020-08-04] MEDS: multivitamins, therapeutics tablet PO SCH (08:35)
[2020-08-04] MEDS: lactobacillus rhamnosus 10,000 MMU CELLS/CAPSULE PO SCH ×2 (08:35→21:03)
[2020-08-04] MEDS: famotidine 20mg tablet PO SCH ×2 (08:36→21:03)
[2020-08-04] MEDS: nicotine 21mg patch - 24 hr TD SCH (08:36)
[2020-08-04] MEDS: folic acid 1mg tablet PO SCH (08:36)
[2020-08-04 10:00] VITALS: BP 94/56
[2020-08-04 17:25] LABS: % IRON SATURATION 49 % (11-46); IRON 40 UG/DL (49-151); TOTAL IRON BINDING CAPACITY 82 UG/DL (259-388)
[2020-08-04] MEDS: dextrose 5%-water 1,000 ML IV SCH (17:34)
[2020-08-04 18:00] VITALS: BP 97/67
--- NOTE | 2020-08-04 18:38 | NUR ---
Patient in room ORTHO 4007. I have received report from KALEY IVEY and had the opportunity to ask questions and assume patient care.
[2020-08-04 20:00] VITALS: BP_SYST 97; BP_DIAS 65; BP_DIAS 67
[2020-08-04 22:00] VITALS: BP 97/65
[2020-08-05] MEDS: dextrose 5%-water 1,000 ML IV SCH ×3 (01:45→22:35)
[2020-08-05] MEDS: vancomycin 125mg/5ml ORAL solution 5ml UD bottle PO SCH ×4 (03:41→20:20)
[2020-08-05 06:00] VITALS: BP 106/65
--- NOTE | 2020-08-05 06:29 | NUR ---
Patient in room ORTHO 4007. I have received report from DANIELLE moran and had the opportunity to ask questions and assume patient care.
--- NOTE | 2020-08-05 06:42 | NUR ---
Problems reprioritized. Patient report given, questions answered & plan of care reviewed with MARITO IVEY.
[2020-08-05 07:13] LABS: BASOPHILS # (AUTO) 0.1 X10'3 (0-0.2); BASOPHILS % (AUTO) 0.6 % (0-1); EOSINOPHILS # (AUTO) 0.1 X10'3 (0-0.9); EOSINOPHILS % (AUTO) 1.4 % (0-6); HEMATOCRIT 24.7 % (35.0-45.0); HEMOGLOBIN 7.9 g/dl (12.0-16.0); LYMPHOCYTES # (AUTO) 2.9 X10'3 (1.1-4.8); LYMPHOCYTES % (AUTO) 29.8 % (21-51); MEAN CORPUSCULAR HEMOGLOBIN 34.9 PG (27.0-31.0); MEAN CORPUSCULAR HGB CONC 32.1 g/dL (33.0-36.5); MEAN CORPUSCULAR VOLUME 108.8 FL (78-98); MEAN PLATELET VOLUME 8.7 FL (7.4-10.4); MONOCYTES # (AUTO) 0.8 X10'3 (0-0.9); MONOCYTES % (AUTO) 8.7 % (2-12); NEUTROPHILS # (AUTO) 5.8 X10'3 (1.8-7.7); NEUTROPHILS % (AUTO) 59.5 % (42-75); PLATELET COUNT 138 X10'3 (140-440); RED BLOOD COUNT 2.27 X10'6 (4.20-5.60); RED CELL DISTRIBUTION WIDTH 15.8 % (11.5-14.5); WHITE BLOOD COUNT 9.7 X10'3 (4.5-11.0)
[2020-08-05 07:32] LABS: ALANINE AMINOTRANSFERASE 54 U/L (12-78); ALBUMIN 1.8 G/DL (3.4-5.0); ALBUMIN/GLOBULIN RATIO 0.6 (1.1-1.5); ALKALINE PHOSPHATASE 231 IU/L (46-116); ANION GAP 11 (8-16); ASPARTATE AMINO TRANSFERASE 90 U/L (10-37); BILIRUBIN,TOTAL 0.3 MG/DL (0.1-1.0); BLOOD UREA NITROGEN 2 MG/DL (7-18); BUN/CREATININE RATIO 2.7 (6.6-38.0); CALCIUM 8.2 MG/DL (8.5-10.1); CHLORIDE 112 MMOL/L (99-107); CREATININE 0.75 MG/DL (0.40-0.90); GLUCOSE 96 MG/DL (70-104); POTASSIUM 3.5 MMOL/L (3.5-5.1); SODIUM 143 MMOL/L (135-145); TOTAL CARBON DIOXIDE 19.6 MMOL/L (24-32); TOTAL PROTEIN 4.6 G/DL (6.4-8.2); eGFR 79 ML/MIN
[2020-08-05] MEDS: enoxaparin 40mg/0.4ml syringe SQ SCH ×2 (09:16→20:21)
[2020-08-05] MEDS: lactobacillus rhamnosus 10,000 MMU CELLS/CAPSULE PO SCH ×2 (09:17→20:20)
[2020-08-05] MEDS: thiamine 100mg tablet PO SCH (09:17)
[2020-08-05] MEDS: nicotine 21mg patch - 24 hr TD SCH (09:17)
[2020-08-05] MEDS: famotidine 20mg tablet PO SCH ×2 (09:17→20:20)
[2020-08-05] MEDS: folic acid 1mg tablet PO SCH (09:17)
[2020-08-05] MEDS: multivitamins, therapeutics tablet PO SCH (09:17)
[2020-08-05] MEDS: nystatin 15 GM powder TP SCH ×3 (09:18→20:21)
[2020-08-05 10:00] VITALS: BP 114/76
--- NOTE | 2020-08-05 15:42 | NUR ---
pt left the facilty with Renny lawrence at 1535. Family was notified of belongings bag that is here at [facility]. Family states someone will come today and get belongings Addendum: 08/05/20 at 1544 by Britt Roque RN disregard note, incorrect patient.
[2020-08-05 18:00] VITALS: BP 105/75
--- NOTE | 2020-08-05 18:40 | NUR ---
Problems reprioritized. Patient report given, questions answered & plan of care reviewed with Warren IVEY.
[2020-08-05 20:00] VITALS: BP_SYST 89; BP_SYST 92; BP_DIAS 54; BP_DIAS 70
[2020-08-05 22:00] VITALS: BP 89/54
[2020-08-06] MEDS: vancomycin 125mg/5ml ORAL solution 5ml UD bottle PO SCH ×4 (02:17→19:36)
--- NOTE | 2020-08-06 06:26 | NUR ---
Problems reprioritized. Patient report given, questions answered & plan of care reviewed with LONI HUGHES.
--- NOTE | 2020-08-06 06:31 | NUR ---
Received report from Grzegorz IVEY
[2020-08-06 07:09] VITALS: BP 113/76
[2020-08-06 07:17] LABS: BASOPHILS % (AUTO) 0.4 % (0-1); EOSINOPHILS # (AUTO) 0.2 X10'3 (0-0.9); EOSINOPHILS % (AUTO) 1.8 % (0-6); HEMATOCRIT 28.1 % (35.0-45.0); HEMOGLOBIN 8.9 g/dl (12.0-16.0); LYMPHOCYTES # (AUTO) 2.4 X10'3 (1.1-4.8); LYMPHOCYTES % (AUTO) 27.7 % (21-51); MEAN CORPUSCULAR HEMOGLOBIN 34.4 PG (27.0-31.0); MEAN CORPUSCULAR HGB CONC 31.5 g/dL (33.0-36.5); MEAN PLATELET VOLUME 8.9 FL (7.4-10.4); MONOCYTES # (AUTO) 0.8 X10'3 (0-0.9); MONOCYTES % (AUTO) 9.8 % (2-12); NEUTROPHILS # (AUTO) 5.2 X10'3 (1.8-7.7); NEUTROPHILS % (AUTO) 60.3 % (42-75); PLATELET COUNT 191 X10'3 (140-440); RED BLOOD COUNT 2.58 X10'6 (4.20-5.60); RED CELL DISTRIBUTION WIDTH 16.2 % (11.5-14.5); WHITE BLOOD COUNT 8.6 X10'3 (4.5-11.0)
[2020-08-06 07:56] LABS: ALANINE AMINOTRANSFERASE 54 U/L (12-78); ALBUMIN 1.8 G/DL (3.4-5.0); ALBUMIN/GLOBULIN RATIO 0.6 (1.1-1.5); ANION GAP 13 (8-16); ASPARTATE AMINO TRANSFERASE 82 U/L (10-37); BILIRUBIN,TOTAL 0.3 MG/DL (0.1-1.0); BLOOD UREA NITROGEN 2 MG/DL (7-18); BUN/CREATININE RATIO 2.4 (6.6-38.0); CALCIUM 8.5 MG/DL (8.5-10.1); CHLORIDE 110 MMOL/L (99-107); CREATININE 0.83 MG/DL (0.40-0.90); GLUCOSE 102 MG/DL (70-104); POTASSIUM 3.5 MMOL/L (3.5-5.1); SODIUM 144 MMOL/L (135-145); TOTAL CARBON DIOXIDE 21.1 MMOL/L (24-32); TOTAL PROTEIN 4.9 G/DL (6.4-8.2); eGFR 70 ML/MIN
[2020-08-06 08:01] LABS: ALKALINE PHOSPHATASE 230 IU/L (46-116)
[2020-08-06 08:25] LABS: TOTAL CELLS COUNTED 100
[2020-08-06 08:28] LABS: ANISOCYTOSIS 1+; PLATELET ESTIMATE NORMAL
[2020-08-06 08:29] LABS: LARGE PLATELETS FEW
[2020-08-06] MEDS: nicotine 21mg patch - 24 hr TD SCH (08:36)
[2020-08-06] MEDS: folic acid 1mg tablet PO SCH (08:37)
[2020-08-06] MEDS: thiamine 100mg tablet PO SCH (08:37)
[2020-08-06] MEDS: lactobacillus rhamnosus 10,000 MMU CELLS/CAPSULE PO SCH ×2 (08:37→19:36)
[2020-08-06] MEDS: multivitamins, therapeutics tablet PO SCH (08:37)
[2020-08-06] MEDS: famotidine 20mg tablet PO SCH ×2 (08:37→19:36)
[2020-08-06] MEDS: enoxaparin 40mg/0.4ml syringe SQ SCH ×2 (08:37→19:36)
[2020-08-06] MEDS: nystatin 15 GM powder TP SCH ×3 (08:39→19:37)
[2020-08-06] MEDS: dextrose 5%-water 1,000 ML IV SCH ×2 (08:48→17:45)
--- NOTE | 2020-08-06 14:50 | NUR ---
Reassessment: Pt PO on a full liquid diet has been 50-75%. Diet advanced to heart healthy with 50-75% at first solid meal this AM. Pt is partially meeting estimated nutrient needs. ELSIE recommends Ensure Enlive TIDWM to meet protein/kcal needs; MD notified. Last BM 08/05 with PRN bowel care available. No nutrition concerns at this time. Will continue to follow. Recommendations: 1. Continue heart healthy diet 2. Continue routine Thiamine, folic acid and MVI for EtOH hx with elevated MCV. 3. Ensure Enlive TIDWM; pending MD verification 4. Bowel care per rx 5. Weekly wts Addendum: 08/06/20 at 1450 by Felicity BINGHAM NAILING MACHINE OPERATOR RD Amended: Links added. Addendum: 08/06/20 at [address] RD agrees w/ above internal audit director note.
[2020-08-06 18:00] VITALS: BP 118/74
--- NOTE | 2020-08-06 18:30 | NUR ---
Patient in room ORTHO 4007. I have received report from LONI HUGHES and had the opportunity to ask questions and assume patient care.
[2020-08-06 20:00] VITALS: BP 121/75
[2020-08-06 22:00] VITALS: BP 121/75
[2020-08-07] MEDS: vancomycin 125mg/5ml ORAL solution 5ml UD bottle PO SCH ×4 (02:16→19:14)
[2020-08-07 06:00] VITALS: BP 116/84
--- NOTE | 2020-08-07 06:27 | NUR ---
Problems reprioritized. Patient report given, questions answered & plan of care reviewed with luisa Suggs.
[2020-08-07 06:28] LABS: BASOPHILS # (AUTO) 0.1 X10'3 (0-0.2); BASOPHILS % (AUTO) 0.7 % (0-1); EOSINOPHILS # (AUTO) 0.1 X10'3 (0-0.9); EOSINOPHILS % (AUTO) 1.4 % (0-6); HEMATOCRIT 28.4 % (35.0-45.0); LYMPHOCYTES # (AUTO) 2.3 X10'3 (1.1-4.8); LYMPHOCYTES % (AUTO) 29.8 % (21-51); MEAN CORPUSCULAR HEMOGLOBIN 34.1 PG (27.0-31.0); MEAN CORPUSCULAR HGB CONC 31.8 g/dL (33.0-36.5); MEAN CORPUSCULAR VOLUME 107.1 FL (78-98); MEAN PLATELET VOLUME 8.4 FL (7.4-10.4); MONOCYTES # (AUTO) 0.8 X10'3 (0-0.9); MONOCYTES % (AUTO) 10.1 % (2-12); NEUTROPHILS # (AUTO) 4.5 X10'3 (1.8-7.7); PLATELET COUNT 247 X10'3 (140-440); RED BLOOD COUNT 2.65 X10'6 (4.20-5.60); RED CELL DISTRIBUTION WIDTH 16.1 % (11.5-14.5); WHITE BLOOD COUNT 7.8 X10'3 (4.5-11.0)
[2020-08-07] MEDS: dextrose 5%-water 1,000 ML IV SCH ×2 (06:29→14:42)
[2020-08-07 06:57] LABS: ALANINE AMINOTRANSFERASE 55 U/L (12-78); ALBUMIN 1.8 G/DL (3.4-5.0); ALBUMIN/GLOBULIN RATIO 0.6 (1.1-1.5); ALKALINE PHOSPHATASE 240 IU/L (46-116); ANION GAP 10 (8-16); ASPARTATE AMINO TRANSFERASE 89 U/L (10-37); BILIRUBIN,TOTAL 0.3 MG/DL (0.1-1.0); BLOOD UREA NITROGEN 2 MG/DL (7-18); BUN/CREATININE RATIO 2.1 (6.6-38.0); CALCIUM 8.7 MG/DL (8.5-10.1); CHLORIDE 110 MMOL/L (99-107); CREATININE 0.95 MG/DL (0.40-0.90); GLUCOSE 93 MG/DL (70-104); SODIUM 144 MMOL/L (135-145); TOTAL CARBON DIOXIDE 23.8 MMOL/L (24-32); eGFR 60 ML/MIN
[2020-08-07] MEDS: thiamine 100mg tablet PO SCH (07:43)
[2020-08-07] MEDS: lactobacillus rhamnosus 10,000 MMU CELLS/CAPSULE PO SCH ×2 (07:43→19:14)
[2020-08-07] MEDS: multivitamins, therapeutics tablet PO SCH (07:43)
[2020-08-07] MEDS: folic acid 1mg tablet PO SCH (07:43)
[2020-08-07] MEDS: famotidine 20mg tablet PO SCH ×2 (07:43→19:14)
[2020-08-07] MEDS: enoxaparin 40mg/0.4ml syringe SQ SCH ×2 (07:44→19:15)
[2020-08-07] MEDS: nicotine 21mg patch - 24 hr TD SCH (07:45)
[2020-08-07] MEDS: nystatin 15 GM powder TP SCH ×3 (07:54→19:27)
--- NOTE | 2020-08-07 08:20 | NUR ---
Acting as resource RN assumed care so Es IVEY could go on a break.
[2020-08-07 08:56] LABS: ANISOCYTOSIS 1+; PLATELET ESTIMATE NORMAL; TOTAL CELLS COUNTED 100
[2020-08-07 08:57] LABS: HYPOCHROMASIA 1+
[2020-08-07 08:58] LABS: LARGE PLATELETS FEW
[2020-08-07 10:00] VITALS: BP 139/76
--- NOTE | 2020-08-07 10:07 | NUR ---
Acting as resource RN i assumed patient care to send Malinda RN on a break.
[2020-08-07 10:27] VITALS: BP_SYST 106; BP_SYST 107; BP_SYST 95; BP_DIAS 72; BP_DIAS 74; BP_DIAS 76
--- NOTE | 2020-08-07 10:31 | NUR ---
PAGER ID: [phone] MESSAGE: Tamara GAONA4: PATIENT LOST PIV DURING NOC SHIFT. HAVE BEEN UNABLE TO GET NEW IV ACCESS. DOES SHE NEED THE D5W@100? THANKS, FERMIN [phone]
--- NOTE | 2020-08-07 12:04 | NUR ---
Acting as resource RN assuming patient care to send Malinda RN on a break.
[2020-08-07 18:00] VITALS: BP 107/75
--- NOTE | 2020-08-07 18:03 | NUR ---
Student documentation: I have reviewed and agree with all interventions, assessments performed and documented by SN Latisha. Student Medication Administration: For this medication-pass time frame, all medication were reviewed, dispensed, administered and documented per hospital policy by SN Latisha.
--- NOTE | 2020-08-07 18:04 | NUR ---
Patient in room ORTHO 4007. I have received report from LONI Carrillo and had the opportunity to ask questions and assume patient care. Addendum: 08/07/20 at 1811 by Latisha Milton STUDENT ATUL note wrong time, meant to be at 0600
--- NOTE | 2020-08-07 18:23 | NUR ---
Problems reprioritized. Patient report given, questions answered & plan of care reviewed with LONI Carrillo.
[2020-08-07 20:00] VITALS: BP 102/61
[2020-08-07 22:00] VITALS: BP 102/61
[2020-08-08] MEDS: dextrose 5%-water 1,000 ML IV SCH ×3 (00:35→19:45)
[2020-08-08] MEDS: vancomycin 125mg/5ml ORAL solution 5ml UD bottle PO SCH ×4 (01:22→19:36)
--- NOTE | 2020-08-08 02:43 | NUR ---
Patient in room ORTHO 4007. I have received report from LEANDRO IVEY and had the opportunity to ask questions and assume patient care. Addendum: 08/08/20 at 0246 by Ivette Saul RN Amended: Links added.
--- NOTE | 2020-08-08 02:45 | NUR ---
PT TRANSFERRED TO 351A IN SURG FLOOR BY A RN AND A MIC FROM SURG. ALL THE BELONGINGS AND ABX SENT WITH PT. GAVE REPORT TO LONI ENRIQUE PRIOR TO TRANSFERRING PT.
--- NOTE | 2020-08-08 03:00 | NUR ---
PT ARRIVED TO THE FLOOR IN A BED AND PUT INTO ROOM 351. PT TOLERATED WELL.
--- NOTE | 2020-08-08 03:23 | NUR ---
PT IV INFUSING D5W @ 100 cc/hr without s&s of distress right wrist area # 20, pure wick in place pt clean and dry. noted nystatin powder bilat under breast and panis. pt on room air orientated to self attempt to orient to room. right knee with optifoam in place. scd's off at this time. bed alarm on.
--- NOTE | 2020-08-08 05:52 | NUR ---
pt resting, lab attempted to draw without success.
--- NOTE | 2020-08-08 07:11 | NUR ---
Problems reprioritized. Patient report given, questions answered & plan of care reviewed with KATE IVEY. Addendum: 08/08/20 at 0711 by Ivette Saul RN Amended: Links added.
--- NOTE | 2020-08-08 07:23 | NUR ---
Patient in room AARON 351. I have received report from ernestine IVEY and had the opportunity to ask questions and assume patient care.
[2020-08-08] MEDS: lactobacillus rhamnosus 10,000 MMU CELLS/CAPSULE PO SCH ×2 (08:25→19:33)
[2020-08-08] MEDS: nicotine 21mg patch - 24 hr TD SCH (08:28)
[2020-08-08] MEDS: acetaminophen 325mg tablet PO PRN ×2 (08:29→19:37)
[2020-08-08] MEDS: thiamine 100mg tablet PO SCH (08:30)
[2020-08-08] MEDS: famotidine 20mg tablet PO SCH ×2 (08:30→19:33)
[2020-08-08] MEDS: multivitamins, therapeutics tablet PO SCH (08:31)
[2020-08-08] MEDS: folic acid 1mg tablet PO SCH (08:31)
[2020-08-08] MEDS: enoxaparin 40mg/0.4ml syringe SQ SCH ×2 (08:33→19:34)
[2020-08-08] MEDS: nystatin 15 GM powder TP SCH ×3 (08:34→20:40)
[2020-08-08 09:10] LABS: BASOPHILS % (AUTO) 0.4 % (0-1); EOSINOPHILS # (AUTO) 0.1 X10'3 (0-0.9); EOSINOPHILS % (AUTO) 1.7 % (0-6); HEMATOCRIT 28.2 % (35.0-45.0); HEMOGLOBIN 9.1 g/dl (12.0-16.0); LYMPHOCYTES # (AUTO) 2.4 X10'3 (1.1-4.8); LYMPHOCYTES % (AUTO) 30.9 % (21-51); MEAN CORPUSCULAR HEMOGLOBIN 34.1 PG (27.0-31.0); MEAN CORPUSCULAR HGB CONC 32.1 g/dL (33.0-36.5); MEAN CORPUSCULAR VOLUME 106.2 FL (78-98); MEAN PLATELET VOLUME 8.5 FL (7.4-10.4); MONOCYTES # (AUTO) 0.7 X10'3 (0-0.9); MONOCYTES % (AUTO) 9.3 % (2-12); NEUTROPHILS # (AUTO) 4.5 X10'3 (1.8-7.7); NEUTROPHILS % (AUTO) 57.7 % (42-75); PLATELET COUNT 268 X10'3 (140-440); RED BLOOD COUNT 2.66 X10'6 (4.20-5.60); WHITE BLOOD COUNT 7.8 X10'3 (4.5-11.0)
[2020-08-08 09:30] LABS: ALANINE AMINOTRANSFERASE 56 U/L (12-78); ALBUMIN 1.9 G/DL (3.4-5.0); ALBUMIN/GLOBULIN RATIO 0.6 (1.1-1.5); ALKALINE PHOSPHATASE 232 IU/L (46-116); ANION GAP 10 (8-16); ASPARTATE AMINO TRANSFERASE 85 U/L (10-37); BILIRUBIN,TOTAL 0.4 MG/DL (0.1-1.0); BLOOD UREA NITROGEN 3 MG/DL (7-18); BUN/CREATININE RATIO 3.9 (6.6-38.0); CALCIUM 8.3 MG/DL (8.5-10.1); CHLORIDE 107 MMOL/L (99-107); CREATININE 0.76 MG/DL (0.40-0.90); GLUCOSE 107 MG/DL (70-104); POTASSIUM 3.7 MMOL/L (3.5-5.1); SODIUM 143 MMOL/L (135-145); TOTAL CARBON DIOXIDE 25.9 MMOL/L (24-32); TOTAL PROTEIN 5.1 G/DL (6.4-8.2); eGFR 77 ML/MIN
[2020-08-08 11:43] VITALS: BP 108/77
--- NOTE | 2020-08-08 11:50 | NUR ---
PATIENT HAS MAYTE CARRILLO SHIFT Addendum: 08/08/20 at 1153 by Sandra Pate STUDENT ATUL Amended: Links added.
[2020-08-08 19:00] VITALS: BP 107/75
--- NOTE | 2020-08-08 21:56 | NUR ---
Problems reprioritized. Patient report given, questions answered & plan of care reviewed with matthew moran.
--- NOTE | 2020-08-08 22:04 | NUR ---
Patient in room AARON 351. I have received report from KATE IVEY and had the opportunity to ask questions and assume patient care.
[2020-08-09] VITALS: BP 110/76
[2020-08-09] MEDS: vancomycin 125mg/5ml ORAL solution 5ml UD bottle PO SCH ×4 (02:09→21:50)
[2020-08-09] MEDS: dextrose 5%-water 1,000 ML IV SCH (05:35)
[2020-08-09 05:56] LABS: BASOPHILS % (AUTO) 0.6 % (0-1); EOSINOPHILS # (AUTO) 0.1 X10'3 (0-0.9); EOSINOPHILS % (AUTO) 1.4 % (0-6); HEMOGLOBIN 8.8 g/dl (12.0-16.0); LYMPHOCYTES # (AUTO) 2.3 X10'3 (1.1-4.8); LYMPHOCYTES % (AUTO) 29.8 % (21-51); MEAN CORPUSCULAR HEMOGLOBIN 34.4 PG (27.0-31.0); MEAN CORPUSCULAR HGB CONC 32.5 g/dL (33.0-36.5); MEAN PLATELET VOLUME 8.7 FL (7.4-10.4); MONOCYTES # (AUTO) 0.7 X10'3 (0-0.9); MONOCYTES % (AUTO) 8.5 % (2-12); NEUTROPHILS # (AUTO) 4.7 X10'3 (1.8-7.7); NEUTROPHILS % (AUTO) 59.7 % (42-75); PLATELET COUNT 277 X10'3 (140-440); RED BLOOD COUNT 2.55 X10'6 (4.20-5.60); RED CELL DISTRIBUTION WIDTH 15.6 % (11.5-14.5); WHITE BLOOD COUNT 7.8 X10'3 (4.5-11.0)
[2020-08-09 06:26] LABS: ALANINE AMINOTRANSFERASE 52 U/L (12-78); ALBUMIN 1.9 G/DL (3.4-5.0); ALBUMIN/GLOBULIN RATIO 0.6 (1.1-1.5); ALKALINE PHOSPHATASE 220 IU/L (46-116); ANION GAP 10 (8-16); ASPARTATE AMINO TRANSFERASE 85 U/L (10-37); BILIRUBIN,TOTAL 0.3 MG/DL (0.1-1.0); BLOOD UREA NITROGEN 3 MG/DL (7-18); BUN/CREATININE RATIO 3.9 (6.6-38.0); CALCIUM 8.3 MG/DL (8.5-10.1); CHLORIDE 107 MMOL/L (99-107); CREATININE 0.76 MG/DL (0.40-0.90); GLUCOSE 103 MG/DL (70-104); POTASSIUM 3.8 MMOL/L (3.5-5.1); SODIUM 144 MMOL/L (135-145); TOTAL CARBON DIOXIDE 27.2 MMOL/L (24-32); TOTAL PROTEIN 5.1 G/DL (6.4-8.2); eGFR 77 ML/MIN
--- NOTE | 2020-08-09 06:30 | NUR ---
Problems reprioritized. Patient report given, questions answered & plan of care reviewed with FERMIN IVEY.
[2020-08-09 07:40] VITALS: BP 108/78
[2020-08-09] MEDS: nystatin 15 GM powder TP SCH ×3 (08:00→21:52)
[2020-08-09] MEDS: lactobacillus rhamnosus 10,000 MMU CELLS/CAPSULE PO SCH ×2 (08:15→21:50)
[2020-08-09] MEDS: famotidine 20mg tablet PO SCH ×2 (08:16→21:50)
[2020-08-09] MEDS: thiamine 100mg tablet PO SCH (08:17)
[2020-08-09] MEDS: folic acid 1mg tablet PO SCH (08:17)
[2020-08-09] MEDS: multivitamins, therapeutics tablet PO SCH (08:17)
[2020-08-09] MEDS: nicotine 21mg patch - 24 hr TD SCH (08:19)
[2020-08-09] MEDS: enoxaparin 40mg/0.4ml syringe SQ SCH ×2 (08:21→21:52)
--- NOTE | 2020-08-09 08:30 | NUR ---
Student Medication Administration: For this medication-pass time frame, all medication were reviewed, dispensed, administered and documented per hospital policy by SN Claudio.
[2020-08-09 08:57] VITALS: BP 107/78
--- NOTE | 2020-08-09 08:59 | NUR ---
Patient is experiencing some minor confusion, is unsure where her cut came from on her right knee and scab on left arm. Patient has no recollection of falling on 08/03 (in ortho/neuro) Addendum: 08/09/20 at [address]UD[address] Amended: Links added.
--- NOTE | 2020-08-09 09:03 | NUR ---
Patient is incontinent of urine, purewick in place this shift Addendum: 08/09/20 at 0907 by Sandra POLLARD Amended: Links added.
[2020-08-09 11:00] VITALS: BP 113/82
--- NOTE | 2020-08-09 11:55 | NUR ---
Student documentation: I have reviewed and agree with all interventions, assessments performed and documented by SN Claudio.
[2020-08-09 12:02] VITALS: BP 105/70
--- NOTE | 2020-08-09 12:14 | NUR ---
Patient in room AARON 351. I have received report from Es IVEY and had the opportunity to ask questions and assume patient care.
--- NOTE | 2020-08-09 16:33 | NUR ---
PAGER ID: [phone] MESSAGE: Tamara Miller: patient has been on D5W @100. does she need the fluids still? thanks, jordon [phone]
--- NOTE | 2020-08-09 18:19 | NUR ---
Problems reprioritized. Patient report given, questions answered & plan of care reviewed with Kalyan RN's.
--- NOTE | 2020-08-09 18:23 | NUR ---
Problems reprioritized. Patient report given, questions answered & plan of care reviewed with Es IVEY.
--- NOTE | 2020-08-09 18:43 | NUR ---
Patient in room AARON 351. I have received report from Es IVEY and had the opportunity to ask questions and assume patient care. Garo IVEY
[2020-08-09 20:00] VITALS: BP 103/76
[2020-08-10] VITALS: BP 106/78
[2020-08-10] MEDS: vancomycin 125mg/5ml ORAL solution 5ml UD bottle PO SCH ×2 (02:45→07:24)
[2020-08-10 06:56] LABS: BASOPHILS % (AUTO) 0.5 % (0-1); EOSINOPHILS # (AUTO) 0.1 X10'3 (0-0.9); EOSINOPHILS % (AUTO) 1.6 % (0-6); HEMATOCRIT 27.8 % (35.0-45.0); LYMPHOCYTES # (AUTO) 2.3 X10'3 (1.1-4.8); LYMPHOCYTES % (AUTO) 30.6 % (21-51); MEAN CORPUSCULAR HEMOGLOBIN 34.2 PG (27.0-31.0); MEAN CORPUSCULAR HGB CONC 32.3 g/dL (33.0-36.5); MEAN CORPUSCULAR VOLUME 105.9 FL (78-98); MEAN PLATELET VOLUME 8.5 FL (7.4-10.4); MONOCYTES # (AUTO) 0.5 X10'3 (0-0.9); NEUTROPHILS # (AUTO) 4.5 X10'3 (1.8-7.7); NEUTROPHILS % (AUTO) 60.3 % (42-75); PLATELET COUNT 301 X10'3 (140-440); RED BLOOD COUNT 2.62 X10'6 (4.20-5.60); RED CELL DISTRIBUTION WIDTH 15.4 % (11.5-14.5); WHITE BLOOD COUNT 7.5 X10'3 (4.5-11.0)
[2020-08-10 07:22] LABS: ALANINE AMINOTRANSFERASE 51 U/L (12-78); ALBUMIN 1.9 G/DL (3.4-5.0); ALBUMIN/GLOBULIN RATIO 0.6 (1.1-1.5); ALKALINE PHOSPHATASE 215 IU/L (46-116); ANION GAP 7 (8-16); ASPARTATE AMINO TRANSFERASE 86 U/L (10-37); BILIRUBIN,TOTAL 0.4 MG/DL (0.1-1.0); BLOOD UREA NITROGEN 3 MG/DL (7-18); BUN/CREATININE RATIO 3.4 (6.6-38.0); CALCIUM 8.5 MG/DL (8.5-10.1); CHLORIDE 107 MMOL/L (99-107); CREATININE 0.89 MG/DL (0.40-0.90); GLUCOSE 90 MG/DL (70-104); POTASSIUM 3.6 MMOL/L (3.5-5.1); SODIUM 143 MMOL/L (135-145); TOTAL CARBON DIOXIDE 28.6 MMOL/L (24-32); TOTAL PROTEIN 5.2 G/DL (6.4-8.2); eGFR 64 ML/MIN
[2020-08-10] MEDS: famotidine 20mg tablet PO SCH ×2 (07:24→20:37)
[2020-08-10] MEDS: folic acid 1mg tablet PO SCH (07:24)
[2020-08-10] MEDS: multivitamins, therapeutics tablet PO SCH (07:24)
[2020-08-10] MEDS: lactobacillus rhamnosus 10,000 MMU CELLS/CAPSULE PO SCH ×2 (07:24→20:37)
[2020-08-10] MEDS: thiamine 100mg tablet PO SCH (07:24)
[2020-08-10] MEDS: enoxaparin 40mg/0.4ml syringe SQ SCH ×2 (07:25→20:37)
[2020-08-10] MEDS: nystatin 15 GM powder TP SCH ×3 (07:25→20:30)
[2020-08-10] MEDS: nicotine 21mg patch - 24 hr TD SCH (07:25)
[2020-08-10 07:30] VITALS: BP 118/79
[2020-08-10 12:59] VITALS: BP 103/75
--- NOTE | 2020-08-10 13:45 | NUR ---
Reassessment: Appetite appears to be improving with average 50% PO intake up to 75-100% PO intake at three most recent meals. ONS still pending MD approval in EMR. LBM 08/10. Pt awaiting rehab placement per physician notes. No nutrition intervention implemented at this time. Will continue to follow and make recommendations as appropriate. Recommendations: 1. Continue heart healthy diet 2. Continue routine Thiamine, folic acid and MVI for EtOH hx with elevated MCV 3. Ensure Enlive TIDWM; pending physician verification in EMR; consider double protein TID if PO intake continues to improve 4. Bowel care per rx 5. Weekly scaled wts Addendum: 08/10/20 at [address] Amended: Links added.
--- NOTE | 2020-08-10 18:27 | NUR ---
Problems reprioritized. Patient report given, questions answered & plan of care reviewed with Annika & Debbie Wyman.
--- NOTE | 2020-08-10 19:00 | NUR ---
Patient in room AARON 351. I have received report from Emmett and had the opportunity to ask questions and assume patient care. Garo IVEY
[2020-08-10 20:00] VITALS: BP 111/75
[2020-08-10 23:52] VITALS: BP 108/71
--- NOTE | 2020-08-11 06:15 | NUR ---
Patient in room AARON 351. I have received report from Annika RN & LONI Wyman and had the opportunity to ask questions and assume patient care.
--- NOTE | 2020-08-11 06:25 | NUR ---
Problems reprioritized. Patient report given, questions answered & plan of care reviewed with LONI Squires. Garo IVEY.
[2020-08-11 06:30] VITALS: BP 104/61
[2020-08-11] MEDS: multivitamins, therapeutics tablet PO SCH (09:36)
[2020-08-11] MEDS: folic acid 1mg tablet PO SCH (09:36)
[2020-08-11] MEDS: famotidine 20mg tablet PO SCH ×2 (09:36→19:44)
[2020-08-11] MEDS: thiamine 100mg tablet PO SCH (09:36)
[2020-08-11] MEDS: lactobacillus rhamnosus 10,000 MMU CELLS/CAPSULE PO SCH ×2 (09:36→19:43)
[2020-08-11] MEDS: nystatin 15 GM powder TP SCH ×2 (09:37→19:45)
[2020-08-11] MEDS: enoxaparin 40mg/0.4ml syringe SQ SCH ×2 (09:37→19:44)
[2020-08-11] MEDS: nicotine 21mg patch - 24 hr TD SCH (09:38)
[2020-08-11 11:00] VITALS: BP 102/68
[2020-08-11 18:00] VITALS: BP 111/64
--- NOTE | 2020-08-11 18:30 | NUR ---
Problems reprioritized. Patient report given, questions answered & plan of care reviewed with LONI Mercado & LONI Wyman.
--- NOTE | 2020-08-11 18:52 | NUR ---
Patient in room AARON 351. I have received report from LONI Squires and had the opportunity to ask questions and assume patient care.
[2020-08-12] VITALS: BP 115/68
[2020-08-12 05:49] LABS: BASOPHILS # (AUTO) 0.1 X10'3 (0-0.2); BASOPHILS % (AUTO) 0.8 % (0-1); EOSINOPHILS # (AUTO) 0.1 X10'3 (0-0.9); EOSINOPHILS % (AUTO) 1.8 % (0-6); HEMATOCRIT 26.3 % (35.0-45.0); HEMOGLOBIN 8.6 g/dl (12.0-16.0); LYMPHOCYTES # (AUTO) 2.5 X10'3 (1.1-4.8); LYMPHOCYTES % (AUTO) 35.2 % (21-51); MEAN CORPUSCULAR HEMOGLOBIN 34.3 PG (27.0-31.0); MEAN CORPUSCULAR HGB CONC 32.9 g/dL (33.0-36.5); MEAN CORPUSCULAR VOLUME 104.3 FL (78-98); MEAN PLATELET VOLUME 8.4 FL (7.4-10.4); MONOCYTES # (AUTO) 0.5 X10'3 (0-0.9); MONOCYTES % (AUTO) 7.2 % (2-12); NEUTROPHILS # (AUTO) 3.9 X10'3 (1.8-7.7); PLATELET COUNT 274 X10'3 (140-440); RED BLOOD COUNT 2.52 X10'6 (4.20-5.60); RED CELL DISTRIBUTION WIDTH 15.5 % (11.5-14.5); WHITE BLOOD COUNT 7.1 X10'3 (4.5-11.0)
[2020-08-12 06:04] LABS: ALANINE AMINOTRANSFERASE 41 U/L (12-78); ALBUMIN/GLOBULIN RATIO 0.6 (1.1-1.5); ALKALINE PHOSPHATASE 196 IU/L (46-116); ANION GAP 7 (8-16); ASPARTATE AMINO TRANSFERASE 67 U/L (10-37); BILIRUBIN,TOTAL 0.4 MG/DL (0.1-1.0); BLOOD UREA NITROGEN 4 MG/DL (7-18); BUN/CREATININE RATIO 4.6 (6.6-38.0); CALCIUM 8.5 MG/DL (8.5-10.1); CHLORIDE 106 MMOL/L (99-107); CREATININE 0.87 MG/DL (0.40-0.90); GLUCOSE 87 MG/DL (70-104); POTASSIUM 3.7 MMOL/L (3.5-5.1); SODIUM 142 MMOL/L (135-145); TOTAL CARBON DIOXIDE 28.9 MMOL/L (24-32); TOTAL PROTEIN 5.1 G/DL (6.4-8.2); eGFR 66 ML/MIN
--- NOTE | 2020-08-12 06:20 | NUR ---
Patient in room AARON 351. I have received report from LONI Wyman & LONI Mercado and had the opportunity to ask questions and assume patient care.
--- NOTE | 2020-08-12 06:23 | NUR ---
I agree with LONI Wymancertified alcohol drug counselor, medication pass, and report to Tavia RN
--- NOTE | 2020-08-12 06:24 | NUR ---
Problems reprioritized. Patient report given, questions answered & plan of care reviewed with Tavia IVEY. Garo IVEY
[2020-08-12 06:30] VITALS: BP 101/62
[2020-08-12] MEDS: famotidine 20mg tablet PO SCH ×2 (08:35→19:13)
[2020-08-12] MEDS: multivitamins, therapeutics tablet PO SCH (08:35)
[2020-08-12] MEDS: lactobacillus rhamnosus 10,000 MMU CELLS/CAPSULE PO SCH ×2 (08:35→19:13)
[2020-08-12] MEDS: folic acid 1mg tablet PO SCH (08:35)
[2020-08-12] MEDS: enoxaparin 40mg/0.4ml syringe SQ SCH ×2 (08:36→19:13)
[2020-08-12] MEDS: nicotine 21mg patch - 24 hr TD SCH (08:36)
[2020-08-12] MEDS: nystatin 15 GM powder TP SCH ×2 (08:36→19:13)
[2020-08-12] MEDS: thiamine 100mg tablet PO SCH (08:38)
[2020-08-12 11:00] VITALS: BP 118/73
--- NOTE | 2020-08-12 18:30 | NUR ---
I have received report from Tavia IVEY and had the opportunity to ask questions and assume patient care.
--- NOTE | 2020-08-12 18:40 | NUR ---
Problems reprioritized. Patient report given, questions answered & plan of care reviewed with LONI Remy.
[2020-08-12 19:00] VITALS: BP 97/74
[2020-08-12 22:45] VITALS: BP 97/74
[2020-08-13] VITALS: BP 105/64
--- NOTE | 2020-08-13 06:35 | NUR ---
Problems reprioritized. Patient report given, questions answered & plan of care reviewed with Raquel IVEY.
--- NOTE | 2020-08-13 06:37 | NUR ---
Patient in room AARON 351. I have received report from kindra IVEY and had the opportunity to ask questions and assume patient care.
--- NOTE | 2020-08-13 06:40 | NUR ---
Patient in room AARON 351. I have received report from LONI Remy and had the opportunity to ask questions and assume patient care.
[2020-08-13 07:00] VITALS: BP 111/52
[2020-08-13] MEDS: folic acid 1mg tablet PO SCH (08:08)
[2020-08-13] MEDS: lactobacillus rhamnosus 10,000 MMU CELLS/CAPSULE PO SCH ×2 (08:08→20:24)
[2020-08-13] MEDS: thiamine 100mg tablet PO SCH (08:09)
[2020-08-13] MEDS: multivitamins, therapeutics tablet PO SCH (08:09)
[2020-08-13] MEDS: famotidine 20mg tablet PO SCH ×2 (08:09→20:25)
[2020-08-13] MEDS: nicotine 21mg patch - 24 hr TD SCH (08:10)
[2020-08-13] MEDS: enoxaparin 40mg/0.4ml syringe SQ SCH ×2 (08:10→20:25)
[2020-08-13] MEDS: nystatin 15 GM powder TP SCH ×2 (08:13→20:25)
[2020-08-13 09:20] LABS: BASOPHILS # (AUTO) 0.1 X10'3 (0-0.2); EOSINOPHILS # (AUTO) 0.1 X10'3 (0-0.9); EOSINOPHILS % (AUTO) 1.8 % (0-6); HEMATOCRIT 28.8 % (35.0-45.0); HEMOGLOBIN 9.4 g/dl (12.0-16.0); LYMPHOCYTES # (AUTO) 2.2 X10'3 (1.1-4.8); LYMPHOCYTES % (AUTO) 30.1 % (21-51); MEAN CORPUSCULAR HGB CONC 32.7 g/dL (33.0-36.5); MEAN CORPUSCULAR VOLUME 103.8 FL (78-98); MEAN PLATELET VOLUME 8.3 FL (7.4-10.4); MONOCYTES # (AUTO) 0.5 X10'3 (0-0.9); NEUTROPHILS # (AUTO) 4.3 X10'3 (1.8-7.7); NEUTROPHILS % (AUTO) 60.1 % (42-75); PLATELET COUNT 283 X10'3 (140-440); RED BLOOD COUNT 2.77 X10'6 (4.20-5.60); RED CELL DISTRIBUTION WIDTH 15.4 % (11.5-14.5); WHITE BLOOD COUNT 7.2 X10'3 (4.5-11.0)
[2020-08-13 09:30] LABS: ALANINE AMINOTRANSFERASE 44 U/L (12-78); ALBUMIN 2.1 G/DL (3.4-5.0); ALBUMIN/GLOBULIN RATIO 0.6 (1.1-1.5); ALKALINE PHOSPHATASE 204 IU/L (46-116); ANION GAP 9 (8-16); ASPARTATE AMINO TRANSFERASE 73 U/L (10-37); BILIRUBIN,TOTAL 0.5 MG/DL (0.1-1.0); BLOOD UREA NITROGEN 5 MG/DL (7-18); BUN/CREATININE RATIO 6.3 (6.6-38.0); CALCIUM 8.3 MG/DL (8.5-10.1); CHLORIDE 105 MMOL/L (99-107); CREATININE 0.79 MG/DL (0.40-0.90); GLUCOSE 106 MG/DL (70-104); POTASSIUM 3.6 MMOL/L (3.5-5.1); SODIUM 142 MMOL/L (135-145); TOTAL CARBON DIOXIDE 28.1 MMOL/L (24-32); TOTAL PROTEIN 5.5 G/DL (6.4-8.2); eGFR 74 ML/MIN
[2020-08-13 11:00] VITALS: BP 121/76
--- NOTE | 2020-08-13 18:23 | NUR ---
Problems reprioritized. Patient report given, questions answered & plan of care reviewed with LONI ESPAÑA.
--- NOTE | 2020-08-13 18:28 | NUR ---
patient seen by Dr Carlin no new changes. patient working with PT to improve mobilization. Discharge plan being reviewed.
--- NOTE | 2020-08-13 18:29 | NUR ---
Student documentation: I have reviewed and agree with all interventions, assessments performed and documented by Latisha Milton.
--- NOTE | 2020-08-13 18:45 | NUR ---
I have received report from Raquel IVEY and had the opportunity to ask questions and assume patient care.
[2020-08-13 20:00] VITALS: BP 118/83
[2020-08-13 23:18] VITALS: BP 94/67
[2020-08-13 23:55] VITALS: BP 107/75
[2020-08-14 06:04] LABS: BASOPHILS % (AUTO) 0.6 % (0-1); EOSINOPHILS # (AUTO) 0.2 X10'3 (0-0.9); HEMATOCRIT 27.3 % (35.0-45.0); HEMOGLOBIN 8.9 g/dl (12.0-16.0); LYMPHOCYTES # (AUTO) 2.6 X10'3 (1.1-4.8); LYMPHOCYTES % (AUTO) 35.1 % (21-51); MEAN CORPUSCULAR HEMOGLOBIN 34.2 PG (27.0-31.0); MEAN CORPUSCULAR HGB CONC 32.6 g/dL (33.0-36.5); MEAN CORPUSCULAR VOLUME 104.7 FL (78-98); MEAN PLATELET VOLUME 8.6 FL (7.4-10.4); MONOCYTES # (AUTO) 0.6 X10'3 (0-0.9); MONOCYTES % (AUTO) 7.5 % (2-12); NEUTROPHILS # (AUTO) 4.1 X10'3 (1.8-7.7); NEUTROPHILS % (AUTO) 54.8 % (42-75); PLATELET COUNT 289 X10'3 (140-440); RED BLOOD COUNT 2.61 X10'6 (4.20-5.60); RED CELL DISTRIBUTION WIDTH 15.6 % (11.5-14.5); WHITE BLOOD COUNT 7.5 X10'3 (4.5-11.0)
--- NOTE | 2020-08-14 06:12 | NUR ---
Problems reprioritized. Patient report given, questions answered & plan of care reviewed with Raquel IVEY.
[2020-08-14 06:17] LABS: ALANINE AMINOTRANSFERASE 42 U/L (12-78); ALBUMIN 2.1 G/DL (3.4-5.0); ALBUMIN/GLOBULIN RATIO 0.6 (1.1-1.5); ALKALINE PHOSPHATASE 188 IU/L (46-116); ANION GAP 9 (8-16); ASPARTATE AMINO TRANSFERASE 66 U/L (10-37); BILIRUBIN,TOTAL 0.4 MG/DL (0.1-1.0); BLOOD UREA NITROGEN 5 MG/DL (7-18); BUN/CREATININE RATIO 4.9 (6.6-38.0); CALCIUM 8.6 MG/DL (8.5-10.1); CHLORIDE 106 MMOL/L (99-107); CREATININE 1.02 MG/DL (0.40-0.90); GLUCOSE 91 MG/DL (70-104); POTASSIUM 3.6 MMOL/L (3.5-5.1); SODIUM 142 MMOL/L (135-145); TOTAL CARBON DIOXIDE 26.8 MMOL/L (24-32); TOTAL PROTEIN 5.4 G/DL (6.4-8.2); eGFR 55 ML/MIN
--- NOTE | 2020-08-14 06:18 | NUR ---
Patient in room AARON 351. I have received report from kindra IVEY and had the opportunity to ask questions and assume patient care.
[2020-08-14] MEDS: lactobacillus rhamnosus 10,000 MMU CELLS/CAPSULE PO SCH ×2 (07:27→19:14)
[2020-08-14] MEDS: multivitamins, therapeutics tablet PO SCH (07:28)
[2020-08-14] MEDS: folic acid 1mg tablet PO SCH (07:28)
[2020-08-14] MEDS: famotidine 20mg tablet PO SCH ×2 (07:28→19:14)
[2020-08-14] MEDS: thiamine 100mg tablet PO SCH (07:28)
[2020-08-14] MEDS: nicotine 21mg patch - 24 hr TD SCH (07:29)
[2020-08-14] MEDS: enoxaparin 40mg/0.4ml syringe SQ SCH ×2 (07:30→19:15)
[2020-08-14 07:44] VITALS: BP 98/65
[2020-08-14] MEDS: lactose-reduced food (Ensure Enlive) - 237ml bottle PO SCH ×3 (08:00→18:06)
[2020-08-14] MEDS: nystatin 15 GM powder TP SCH ×2 (08:00→19:17)
[2020-08-14 11:00] VITALS: BP 105/68
--- NOTE | 2020-08-14 13:13 | NUR ---
Reassessment: PO intake continues to improve with average 75-100% with occasional 50% PO intake. ONS verified by physician in EMR today, pt now to receive Ensure Enlive TID. LBM 08/14, diarrhea resolved per physician notes. No further nutrition intervention warranted at this time. Will continue to follow. Recommendations: 1. Continue heart healthy diet 2. Continue routine Thiamine, folic acid and MVI for EtOH hx with elevated MCV 3. Ensure Enlive TIDWM; consider double protein with meals if PO intake continues to improve 4. Bowel care per rx 5. Weekly scaled wts Addendum: 08/14/20 at [address] Amended: Links added.
--- NOTE | 2020-08-14 16:20 | NUR ---
patient seen by Dr Zimmerman and PT no new orders, patient assisted by PT to chair. BM x2 soft non- formed. No c/o pain. Patient awaiting placement. All cares given. Reddened area in groin/ cyrus area and sacrum, cream applied .
--- NOTE | 2020-08-14 17:49 | NUR ---
Problems reprioritized. Patient report given, questions answered & plan of care reviewed with kindra IVEY.
--- NOTE | 2020-08-14 18:40 | NUR ---
I have received report from Raquel IVEY and had the opportunity to ask questions and assume patient care.
[2020-08-14 19:00] VITALS: BP 93/65
[2020-08-14] MEDS: acetaminophen 325mg tablet PO PRN (19:16)
[2020-08-14 20:00] VITALS: BP 104/71
[2020-08-15] VITALS: BP 116/82
--- NOTE | 2020-08-15 06:31 | NUR ---
Problems reprioritized. Patient report given, questions answered & plan of care reviewed with Karlene IVEY.
--- NOTE | 2020-08-15 06:33 | NUR ---
Patient in room AARON 351. I have received report from Sandrita IVEY and had the opportunity to ask questions and assume patient care.
[2020-08-15 08:00] VITALS: BP 105/72
[2020-08-15] MEDS: enoxaparin 40mg/0.4ml syringe SQ SCH ×2 (08:33→20:30)
[2020-08-15] MEDS: lactobacillus rhamnosus 10,000 MMU CELLS/CAPSULE PO SCH ×2 (08:34→20:29)
[2020-08-15] MEDS: thiamine 100mg tablet PO SCH (08:34)
[2020-08-15] MEDS: famotidine 20mg tablet PO SCH ×2 (08:34→20:29)
[2020-08-15] MEDS: multivitamins, therapeutics tablet PO SCH (08:34)
[2020-08-15] MEDS: folic acid 1mg tablet PO SCH (08:34)
[2020-08-15] MEDS: nicotine 21mg patch - 24 hr TD SCH (08:35)
[2020-08-15] MEDS: lactose-reduced food (Ensure Enlive) - 237ml bottle PO SCH ×3 (08:51→20:30)
[2020-08-15] MEDS: nystatin 15 GM powder TP SCH ×2 (08:51→20:31)
[2020-08-15 11:00] VITALS: BP 101/65
--- NOTE | 2020-08-15 18:43 | NUR ---
Problems reprioritized. Patient report given, questions answered & plan of care reviewed with Pat RN.
[2020-08-15 19:30] VITALS: BP 130/94
[2020-08-15] MEDS: acetaminophen 325mg tablet PO PRN (20:28)
[2020-08-15 23:30] VITALS: BP 91/65
--- NOTE | 2020-08-16 06:54 | NUR ---
Patient in room AARON 351. I have received report from Pat RN and had the opportunity to ask questions and assume patient care.
[2020-08-16 07:00] VITALS: BP 95/62
[2020-08-16] MEDS: nystatin 15 GM powder TP SCH ×2 (08:00→20:26)
[2020-08-16] MEDS: multivitamins, therapeutics tablet PO SCH (08:38)
[2020-08-16] MEDS: lactobacillus rhamnosus 10,000 MMU CELLS/CAPSULE PO SCH ×2 (08:38→20:26)
[2020-08-16] MEDS: folic acid 1mg tablet PO SCH (08:38)
[2020-08-16] MEDS: famotidine 20mg tablet PO SCH ×2 (08:38→20:26)
[2020-08-16] MEDS: thiamine 100mg tablet PO SCH (08:39)
[2020-08-16] MEDS: enoxaparin 40mg/0.4ml syringe SQ SCH ×2 (08:43→20:26)
[2020-08-16] MEDS: nicotine 21mg patch - 24 hr TD SCH (08:44)
[2020-08-16] MEDS: lactose-reduced food (Ensure Enlive) - 237ml bottle PO SCH ×3 (08:45→20:28)
[2020-08-16] MEDS: NYSTATIN CREAM - 30GM TUBE TP SCH ×2 (09:40→20:25)
[2020-08-16 11:06] VITALS: BP 117/79
--- NOTE | 2020-08-16 18:22 | NUR ---
Problems reprioritized. Patient report given, questions answered & plan of care reviewed with Prudence RN.
--- NOTE | 2020-08-16 18:26 | NUR ---
Patient in room AARON 351. I have received report from FAMILIA IVEY and had the opportunity to ask questions and assume patient care.
[2020-08-16 19:26] VITALS: BP 114/76
[2020-08-17 00:29] VITALS: BP 110/66
--- NOTE | 2020-08-17 06:24 | NUR ---
Problems reprioritized. Patient report given, questions answered & plan of care reviewed with FERMIN IVEY.
[2020-08-17 07:35] VITALS: BP 112/80
[2020-08-17] MEDS: lactose-reduced food (Ensure Enlive) - 237ml bottle PO SCH ×3 (08:00→18:02)
[2020-08-17] MEDS: thiamine 100mg tablet PO SCH (08:19)
[2020-08-17] MEDS: famotidine 20mg tablet PO SCH ×2 (08:19→20:27)
[2020-08-17] MEDS: nicotine 21mg patch - 24 hr TD SCH (08:19)
[2020-08-17] MEDS: enoxaparin 40mg/0.4ml syringe SQ SCH ×2 (08:19→20:28)
[2020-08-17] MEDS: multivitamins, therapeutics tablet PO SCH (08:19)
[2020-08-17] MEDS: folic acid 1mg tablet PO SCH (08:19)
[2020-08-17] MEDS: lactobacillus rhamnosus 10,000 MMU CELLS/CAPSULE PO SCH ×2 (08:19→20:27)
[2020-08-17] MEDS: nystatin 15 GM powder TP SCH ×2 (08:20→20:29)
[2020-08-17] MEDS: NYSTATIN CREAM - 30GM TUBE TP SCH ×2 (08:20→20:29)
[2020-08-17 11:50] VITALS: BP 106/68
--- NOTE | 2020-08-17 18:17 | NUR ---
Problems reprioritized. Patient report given, questions answered & plan of care reviewed with LONI GARCIA.
--- NOTE | 2020-08-17 18:41 | NUR ---
Patient in room AARON 349. I have received report from FERMIN IVEY and had the opportunity to ask questions and assume patient care.
[2020-08-17 20:00] VITALS: BP 112/74
[2020-08-18] VITALS: BP 114/71
[2020-08-18 06:16] LABS: BASOPHILS # (AUTO) 0.1 X10'3 (0-0.2); BASOPHILS % (AUTO) 0.7 % (0-1); EOSINOPHILS # (AUTO) 0.4 X10'3 (0-0.9); EOSINOPHILS % (AUTO) 5.3 % (0-6); HEMATOCRIT 32.2 % (35.0-45.0); HEMOGLOBIN 10.4 g/dl (12.0-16.0); LYMPHOCYTES # (AUTO) 2.7 X10'3 (1.1-4.8); LYMPHOCYTES % (AUTO) 37.8 % (21-51); MEAN CORPUSCULAR HGB CONC 32.3 g/dL (33.0-36.5); MEAN CORPUSCULAR VOLUME 105.4 FL (78-98); MONOCYTES # (AUTO) 0.6 X10'3 (0-0.9); MONOCYTES % (AUTO) 8.3 % (2-12); NEUTROPHILS # (AUTO) 3.4 X10'3 (1.8-7.7); NEUTROPHILS % (AUTO) 47.9 % (42-75); PLATELET COUNT 324 X10'3 (140-440); RED BLOOD COUNT 3.05 X10'6 (4.20-5.60); RED CELL DISTRIBUTION WIDTH 15.9 % (11.5-14.5); WHITE BLOOD COUNT 7.1 X10'3 (4.5-11.0)
--- NOTE | 2020-08-18 06:22 | NUR ---
Problems reprioritized. Patient report given, questions answered & plan of care reviewed with FERMIN IVEY.
[2020-08-18 06:37] LABS: ALBUMIN 2.6 G/DL (3.4-5.0); ANION GAP 10 (8-16); BLOOD UREA NITROGEN 10 MG/DL (7-18); BUN/CREATININE RATIO 9.1 (6.6-38.0); CALCIUM 9.4 MG/DL (8.5-10.1); CHLORIDE 105 MMOL/L (99-107); GLUCOSE 95 MG/DL (70-104); SODIUM 141 MMOL/L (135-145); TOTAL CARBON DIOXIDE 26.2 MMOL/L (24-32); eGFR 50 ML/MIN
[2020-08-18] MEDS: multivitamins, therapeutics tablet PO SCH (07:28)
[2020-08-18] MEDS: famotidine 20mg tablet PO SCH ×2 (07:28→20:05)
[2020-08-18] MEDS: lactobacillus rhamnosus 10,000 MMU CELLS/CAPSULE PO SCH ×2 (07:28→20:05)
[2020-08-18] MEDS: thiamine 100mg tablet PO SCH (07:28)
[2020-08-18] MEDS: enoxaparin 40mg/0.4ml syringe SQ SCH ×2 (07:28→20:05)
[2020-08-18] MEDS: nicotine 21mg patch - 24 hr TD SCH (07:28)
[2020-08-18] MEDS: folic acid 1mg tablet PO SCH (07:28)
[2020-08-18] MEDS: nystatin 15 GM powder TP SCH ×2 (07:29→20:07)
[2020-08-18] MEDS: lactose-reduced food (Ensure Enlive) - 237ml bottle PO SCH ×3 (07:29→18:09)
[2020-08-18] MEDS: NYSTATIN CREAM - 30GM TUBE TP SCH ×2 (07:29→20:07)
[2020-08-18 07:40] VITALS: BP 125/81
[2020-08-18 12:06] VITALS: BP 103/66
[2020-08-18 18:00] VITALS: BP 106/72
--- NOTE | 2020-08-18 18:09 | NUR ---
Problems reprioritized. Patient report given, questions answered & plan of care reviewed with LONI Hays.
--- NOTE | 2020-08-18 18:20 | NUR ---
Patient in room AARON 349. I have received report from FERMIN IVEY and had the opportunity to ask questions and assume patient care.
[2020-08-19 00:40] VITALS: BP 110/73
--- NOTE | 2020-08-19 06:36 | NUR ---
Problems reprioritized. Patient report given, questions answered & plan of care reviewed with NINI IVEY.
--- NOTE | 2020-08-19 06:58 | NUR ---
Patient in room AARON 349B. I have received report from LONI GARCIA and had the opportunity to ask questions and assume patient care.
[2020-08-19 08:00] VITALS: BP 112/76
[2020-08-19] MEDS: enoxaparin 40mg/0.4ml syringe SQ SCH ×2 (08:00→19:53)
[2020-08-19] MEDS: lactobacillus rhamnosus 10,000 MMU CELLS/CAPSULE PO SCH ×2 (08:00→19:53)
[2020-08-19] MEDS: thiamine 100mg tablet PO SCH (08:00)
[2020-08-19] MEDS: NYSTATIN CREAM - 30GM TUBE TP SCH ×2 (08:00→19:54)
[2020-08-19] MEDS: nystatin 15 GM powder TP SCH ×2 (08:00→19:54)
[2020-08-19] MEDS: nicotine 21mg patch - 24 hr TD SCH (08:00)
[2020-08-19] MEDS: multivitamins, therapeutics tablet PO SCH (08:00)
[2020-08-19] MEDS: famotidine 20mg tablet PO SCH ×2 (08:00→19:53)
[2020-08-19] MEDS: lactose-reduced food (Ensure Enlive) - 237ml bottle PO SCH ×3 (08:00→18:37)
[2020-08-19] MEDS: folic acid 1mg tablet PO SCH (08:00)
[2020-08-19 12:00] VITALS: BP 129/93
--- NOTE | 2020-08-19 13:22 | NUR ---
F/u 08/19: Pt PO fluctuates mostly ~75% avg heart healthy diet w/ ~25% ensure enlives TIDWM likely meeting minimum nutrient needs. LBM 08/18 w/ diarrhea from c.diff resolved per MD note. Will continue to monitor. Recommendations: 1. Continue heart healthy diet 2. Continue routine Thiamine, folic acid and MVI for EtOH hx with elevated MCV 3. Ensure Enlive TIDWM; encourage PO 4. Bowel care per rx 5. Weekly scaled wts Addendum: 08/19/20 at [address] Amended: Links added.
--- NOTE | 2020-08-19 18:36 | NUR ---
Problems reprioritized. Patient report given, questions answered & plan of care reviewed with LONI AGUILERA.
[2020-08-19 18:50] VITALS: BP 99/66
[2020-08-20] VITALS: BP 113/81
--- NOTE | 2020-08-20 06:30 | NUR ---
Problems reprioritized. Patient report given, questions answered & plan of care reviewed with COLLEEN. Addendum: 08/20/20 at 0630 by Kenneth Ghotra RN Amended: Links added.
[2020-08-20 07:00] VITALS: BP 113/68
--- NOTE | 2020-08-20 07:44 | NUR ---
Patient in room AARON 349. I have received report from Elpidio IVEY and had the opportunity to ask questions and assume patient care.
[2020-08-20] MEDS: lactobacillus rhamnosus 10,000 MMU CELLS/CAPSULE PO SCH ×2 (08:44→19:49)
[2020-08-20] MEDS: famotidine 20mg tablet PO SCH ×2 (08:44→19:49)
[2020-08-20] MEDS: folic acid 1mg tablet PO SCH (08:45)
[2020-08-20] MEDS: nicotine 21mg patch - 24 hr TD SCH (08:45)
[2020-08-20] MEDS: multivitamins, therapeutics tablet PO SCH (08:45)
[2020-08-20] MEDS: thiamine 100mg tablet PO SCH (08:45)
[2020-08-20] MEDS: enoxaparin 40mg/0.4ml syringe SQ SCH ×2 (08:46→19:49)
[2020-08-20] MEDS: nystatin 15 GM powder TP SCH ×2 (08:47→19:49)
[2020-08-20] MEDS: lactose-reduced food (Ensure Enlive) - 237ml bottle PO SCH ×3 (08:47→18:00)
[2020-08-20] MEDS: NYSTATIN CREAM - 30GM TUBE TP SCH ×2 (08:47→19:49)
[2020-08-20 11:30] VITALS: BP 113/74
--- NOTE | 2020-08-20 18:11 | NUR ---
Problems reprioritized. Patient report given, questions answered & plan of care reviewed with Elpidio IVEY.
[2020-08-20 20:00] VITALS: BP 112/72
[2020-08-20 23:31] VITALS: BP 100/74
[2020-08-21] MEDS: acetaminophen 325mg tablet PO PRN ×3 (01:02→19:09)
--- NOTE | 2020-08-21 06:23 | NUR ---
Problems reprioritized. Patient report given, questions answered & plan of care reviewed with COLLEEN. Addendum: 08/21/20 at 0623 by Kenneth Ghotra RN Amended: Links added.
[2020-08-21 07:00] VITALS: BP 117/64
[2020-08-21] MEDS: multivitamins, therapeutics tablet PO SCH (07:52)
[2020-08-21] MEDS: thiamine 100mg tablet PO SCH (07:52)
[2020-08-21] MEDS: famotidine 20mg tablet PO SCH ×2 (07:52→19:09)
[2020-08-21] MEDS: folic acid 1mg tablet PO SCH (07:52)
[2020-08-21] MEDS: lactobacillus rhamnosus 10,000 MMU CELLS/CAPSULE PO SCH ×2 (07:52→19:08)
[2020-08-21] MEDS: nicotine 21mg patch - 24 hr TD SCH (07:53)
[2020-08-21] MEDS: enoxaparin 40mg/0.4ml syringe SQ SCH ×2 (07:53→19:10)
[2020-08-21] MEDS: nystatin 15 GM powder TP SCH ×2 (07:57→19:14)
[2020-08-21] MEDS: NYSTATIN CREAM - 30GM TUBE TP SCH ×2 (07:57→19:14)
[2020-08-21] MEDS: lactose-reduced food (Ensure Enlive) - 237ml bottle PO SCH ×3 (08:32→18:22)
[2020-08-21 11:29] VITALS: BP 115/74
--- NOTE | 2020-08-21 18:15 | NUR ---
Problems reprioritized. Patient report given, questions answered & plan of care reviewed with Sadia Mccullough RN.
--- NOTE | 2020-08-21 18:30 | NUR ---
Patient in room [facility]. I have received report from COLLEEN IVEY and had the opportunity to ask questions and assume patient care.
[2020-08-21 20:00] VITALS: BP 105/75
[2020-08-22] VITALS: BP 113/81
--- NOTE | 2020-08-22 06:25 | NUR ---
Problems reprioritized. Patient report given, questions answered & plan of care reviewed with COLLEEN IVEY.
--- NOTE | 2020-08-22 06:34 | NUR ---
Patient in room [facility]. I have received report from Sadia GOMEZ RN and had the opportunity to ask questions and assume patient care.
[2020-08-22] MEDS: famotidine 20mg tablet PO SCH ×2 (07:33→19:29)
[2020-08-22] MEDS: lactobacillus rhamnosus 10,000 MMU CELLS/CAPSULE PO SCH ×2 (07:33→19:29)
[2020-08-22] MEDS: nicotine 21mg patch - 24 hr TD SCH (07:33)
[2020-08-22] MEDS: multivitamins, therapeutics tablet PO SCH (07:33)
[2020-08-22] MEDS: folic acid 1mg tablet PO SCH (07:33)
[2020-08-22] MEDS: thiamine 100mg tablet PO SCH (07:33)
[2020-08-22] MEDS: enoxaparin 40mg/0.4ml syringe SQ SCH ×2 (07:34→19:30)
[2020-08-22] MEDS: nystatin 15 GM powder TP SCH ×2 (07:42→19:30)
[2020-08-22] MEDS: NYSTATIN CREAM - 30GM TUBE TP SCH ×2 (07:42→19:30)
[2020-08-22] MEDS: lactose-reduced food (Ensure Enlive) - 237ml bottle PO SCH ×3 (08:00→18:27)
[2020-08-22 09:42] VITALS: BP 126/77
[2020-08-22 11:30] VITALS: BP 95/67
[2020-08-22] MEDS: acetaminophen 325mg tablet PO PRN ×2 (14:56→23:29)
--- NOTE | 2020-08-22 18:27 | NUR ---
Patient in room [facility] 349B. I have received report from LONI Alexander and had the opportunity to ask questions and assume patient care.
[2020-08-22 20:00] VITALS: BP 111/75
[2020-08-23] VITALS: BP 108/72
--- NOTE | 2020-08-23 06:49 | NUR ---
Problems reprioritized. Patient report given, questions answered & plan of care reviewed with LONI Grissom.
[2020-08-23 06:54] LABS: BASOPHILS # (AUTO) 0.1 X10'3 (0-0.2); EOSINOPHILS # (AUTO) 0.6 X10'3 (0-0.9); EOSINOPHILS % (AUTO) 7.6 % (0-6); HEMATOCRIT 33.8 % (35.0-45.0); HEMOGLOBIN 10.8 g/dl (12.0-16.0); LYMPHOCYTES # (AUTO) 2.5 X10'3 (1.1-4.8); LYMPHOCYTES % (AUTO) 32.9 % (21-51); MEAN CORPUSCULAR HEMOGLOBIN 33.4 PG (27.0-31.0); MEAN CORPUSCULAR HGB CONC 31.9 g/dL (33.0-36.5); MEAN CORPUSCULAR VOLUME 104.6 FL (78-98); MEAN PLATELET VOLUME 9.1 FL (7.4-10.4); MONOCYTES # (AUTO) 0.5 X10'3 (0-0.9); MONOCYTES % (AUTO) 6.7 % (2-12); NEUTROPHILS % (AUTO) 51.8 % (42-75); PLATELET COUNT 398 X10'3 (140-440); RED BLOOD COUNT 3.23 X10'6 (4.20-5.60); RED CELL DISTRIBUTION WIDTH 14.9 % (11.5-14.5); WHITE BLOOD COUNT 7.7 X10'3 (4.5-11.0)
[2020-08-23 07:06] LABS: ALBUMIN 2.7 G/DL (3.4-5.0); ANION GAP 8 (8-16); BLOOD UREA NITROGEN 14 MG/DL (7-18); BUN/CREATININE RATIO 13.5 (6.6-38.0); CALCIUM 9.3 MG/DL (8.5-10.1); CHLORIDE 106 MMOL/L (99-107); CREATININE 1.04 MG/DL (0.40-0.90); GLUCOSE 91 MG/DL (70-104); POTASSIUM 3.3 MMOL/L (3.5-5.1); SODIUM 139 MMOL/L (135-145); TOTAL CARBON DIOXIDE 24.9 MMOL/L (24-32); eGFR 54 ML/MIN
--- NOTE | 2020-08-23 07:10 | NUR ---
Patient in room [facility]. I have received report from Martha IVEY and had the opportunity to ask questions and assume patient care.
[2020-08-23] MEDS: enoxaparin 40mg/0.4ml syringe SQ SCH ×2 (07:42→19:27)
[2020-08-23] MEDS: lactobacillus rhamnosus 10,000 MMU CELLS/CAPSULE PO SCH ×2 (07:43→19:26)
[2020-08-23] MEDS: potassium Cl 20 mEq SR tablet PO PRN ×2 (07:43→19:26)
[2020-08-23] MEDS: nicotine 21mg patch - 24 hr TD SCH (07:43)
[2020-08-23] MEDS: thiamine 100mg tablet PO SCH (07:43)
[2020-08-23] MEDS: famotidine 20mg tablet PO SCH ×2 (07:43→19:26)
[2020-08-23] MEDS: folic acid 1mg tablet PO SCH (07:43)
[2020-08-23] MEDS: multivitamins, therapeutics tablet PO SCH (07:43)
[2020-08-23] MEDS: NYSTATIN CREAM - 30GM TUBE TP SCH ×2 (07:45→19:28)
[2020-08-23] MEDS: nystatin 15 GM powder TP SCH ×2 (07:45→19:26)
[2020-08-23 08:00] VITALS: BP 107/77
[2020-08-23] MEDS: lactose-reduced food (Ensure Enlive) - 237ml bottle PO SCH ×3 (08:00→18:57)
[2020-08-23 11:00] VITALS: BP 109/70
--- NOTE | 2020-08-23 14:10 | NUR ---
Reassessment: Pt continues with average 75% PO intake of meals though PO intake of ONS fluctuates down to 0% with 50% PO intake of most recent ONS. LBM 08/22 after no BM x 3 days. PRN bowel care available. No further nutrition intervention implemented at this time. Will continue to follow. Recommendations: 1. Continue heart healthy diet 2. Continue routine Thiamine, folic acid and MVI for EtOH hx with elevated MCV 3. Ensure Enlive TIDWM; encourage PO 4. Bowel care per rx 5. Weekly scaled wts Addendum: 08/23/20 at [address] Amended: Links added.
[2020-08-23 18:00] VITALS: BP 130/75
--- NOTE | 2020-08-23 18:57 | NUR ---
Problems reprioritized. Patient report given, questions answered & plan of care reviewed with Martha IVEY.
[2020-08-23] MEDS: acetaminophen 325mg tablet PO PRN (19:32)
[2020-08-24] VITALS: BP 128/72
--- NOTE | 2020-08-24 06:55 | NUR ---
Patient in room [facility]. I have received report from Martha IVEY and had the opportunity to ask questions and assume patient care.
[2020-08-24] MEDS: lactobacillus rhamnosus 10,000 MMU CELLS/CAPSULE PO SCH (07:32)
[2020-08-24] MEDS: folic acid 1mg tablet PO SCH (07:32)
[2020-08-24] MEDS: famotidine 20mg tablet PO SCH (07:32)
[2020-08-24] MEDS: thiamine 100mg tablet PO SCH (07:32)
[2020-08-24] MEDS: multivitamins, therapeutics tablet PO SCH (07:33)
[2020-08-24] MEDS: enoxaparin 40mg/0.4ml syringe SQ SCH (07:33)
[2020-08-24] MEDS: nicotine 21mg patch - 24 hr TD SCH (07:33)
[2020-08-24] MEDS: NYSTATIN CREAM - 30GM TUBE TP SCH (07:36)
[2020-08-24] MEDS: nystatin 15 GM powder TP SCH (07:36)
[2020-08-24] MEDS: acetaminophen 325mg tablet PO PRN (07:39)
[2020-08-24 07:50] VITALS: BP 101/74
[2020-08-24] MEDS: lactose-reduced food (Ensure Enlive) - 237ml bottle PO SCH (08:00)
[2020-08-24 11:00] VITALS: BP 110/72
--- NOTE | 2020-08-24 17:42 | NUR ---
All cares given to patient. hair washed per sisters request. Patient appears stable for transfer Report called to Jesus IVEY at [facility]. patient transferred to [facility] in stable condition [id number]
== END 2020-08-24 15:55 | DRG 720 ==
LOC: ER 08:12 → ED HOLD 11:41 → ICU 2S 19:00 → ORTHO 4S 07-31 21:00 → SUR 3N 08-08 03:03 → UNDODISIN 08-24 15:30
PROVIDERS: ADMIT Surgery Surgical Critical Care; ATTEND Surgery Surgical Critical Care
DX: A41.4 Sepsis due to anaerobes (principal); G93.41 Metabolic encephalopathy; E87.2 Acidosis; A04.72 Enterocolitis due to Clostridium difficile, not specified as recurrent; E46 Unspecified protein-calorie malnutrition; E66.01 Morbid (severe) obesity due to excess calories; E87.1 Hypo-osmolality and hyponatremia; M62.82 Rhabdomyolysis; I10 Essential (primary) hypertension; J44.9 Chronic obstructive pulmonary disease, unspecified; G89.29 Other chronic pain; L30.9 Dermatitis, unspecified; R15.9 Full incontinence of feces; R65.20 Severe sepsis without septic shock; Z20.822 Contact with and (suspected) exposure to COVID-19; M54.9 Dorsalgia, unspecified; E03.9 Hypothyroidism, unspecified; E87.6 Hypokalemia; D63.8 Anemia in other chronic diseases classified elsewhere; I95.1 Orthostatic hypotension; R32 Unspecified urinary incontinence; F10.10 Alcohol abuse, uncomplicated; Z68.42 Body mass index [BMI] 45.0-49.9, adult; Z79.899 Other long term (current) drug therapy
CPT/HCPCS: 36415; 71045; 76700; 80048; 80053; 80305; 80320; 81001; 82607; 82948; 83540; 83550; 83605; 83735; 84100; 84145; 85007; 85008; 85025; 87040; 87081; 87088; 87324; 87426; 87449; 87493; 96365; 97110; 97116; 97161; 97164; 97530; 97535; 99291; G0378; J0696; J1650; J2543; J3370; J3411; J3475; J3480; J3490; J7030; J7070; J7120

== ENCOUNTER 2022-10-16 10:31 | Emergency (ER) | payer MEDICAID ==
[~2022-10-16] VITALS: Ht 157.5 cm; Wt 95.5 kg
[~2022-10-16 10:31] MED LIST changes: +LEVO50TA8 PO
[2022-10-16 11:48] VITALS: BP 123/77
[2022-10-16 11:59] LABS: CLARITY,URINE CLOUDY (Clear); COLOR,URINE YELLOW (Yellow); GLUCOSE, URINE NEGATIVE (Neg); KETONES,URINE NEGATIVE (Neg); LEUKOCYTE ESTERASE ,URINE NEGATIVE (Neg); NITRITES, URINE NEGATIVE (Neg); OCCULT BLOOD,URINE LARGE (Neg); PROTEIN,URINE 30 mg/dl (Neg); UROBILINOGEN,URINE 0.2 E.U/dL (0.2-1.0)
[2022-10-16 12:03] LABS: UA COLLECTION TYPE CLN CATCH MIDSTREAM
[2022-10-16 12:05] LABS: MUCUS STRANDS MODERATE /LPF (Neg); SQUAMOUS EPITHELIAL CELL,UR MANY /LPF (FEW)
[2022-10-16 12:06] LABS: BACTERIA,URINE 1+ /HPF (Neg); WBC,URINE 0-4 /HPF (0-4)
[2022-10-16 12:07] LABS: HYALINE CASTS 0-3 /LPF (NEGATIVE); TRANSITIONAL EPI CELLS,URINE FEW /HPF
[2022-10-16 12:13] LABS: BASOPHILS # (AUTO) 0.1 X10'3 (0-0.2); BASOPHILS % (AUTO) 0.8 % (0-1); EOSINOPHILS # (AUTO) 0.1 X10'3 (0-0.9); EOSINOPHILS % (AUTO) 1.7 % (0-6); HEMATOCRIT 39.7 % (35.0-45.0); HEMOGLOBIN 13.1 g/dl (12.0-16.0); LYMPHOCYTES # (AUTO) 2.2 X10'3 (1.1-4.8); LYMPHOCYTES % (AUTO) 26.1 % (21-51); MEAN CORPUSCULAR HEMOGLOBIN 31.5 PG (27.0-31.0); MEAN CORPUSCULAR VOLUME 95.5 FL (78-98); MEAN PLATELET VOLUME 9.4 FL (7.4-10.4); MONOCYTES # (AUTO) 0.6 X10'3 (0-0.9); MONOCYTES % (AUTO) 6.5 % (2-12); NEUTROPHILS # (AUTO) 5.6 X10'3 (1.8-7.7); NEUTROPHILS % (AUTO) 64.9 % (42-75); PLATELET COUNT 150 X10'3 (140-440); RED BLOOD COUNT 4.16 X10'6 (4.20-5.60); RED CELL DISTRIBUTION WIDTH 15.8 % (11.5-14.5); WHITE BLOOD COUNT 8.6 X10'3 (4.5-11.0)
[2022-10-16 12:24] LABS: ALANINE AMINOTRANSFERASE 23 U/L (12-78); ALBUMIN 4.1 G/DL (3.4-5.0); ALBUMIN/GLOBULIN RATIO 1.1 (1.1-1.5); ALKALINE PHOSPHATASE 56 IU/L (46-116); ANION GAP 11 (8-16); ASPARTATE AMINO TRANSFERASE 29 U/L (10-37); BILIRUBIN,TOTAL 0.4 MG/DL (0.1-1.0); BLOOD UREA NITROGEN 25 MG/DL (7-18); BUN/CREATININE RATIO 14.8 (10.0-20.0); CALCIUM 9.3 MG/DL (8.5-10.1); CHLORIDE 101 MMOL/L (99-107); CREATININE 1.69 MG/DL (0.40-0.90); GLUCOSE 103 MG/DL (70-104); POTASSIUM 3.8 MMOL/L (3.5-5.1); SODIUM 139 MMOL/L (135-145); TOTAL CARBON DIOXIDE 27.4 MMOL/L (24-32); TOTAL PROTEIN 7.8 G/DL (6.4-8.2); eGFR 31 ML/MIN
[2022-10-16] MEDS ORDERED: NYST1000 PO (12:40)
[2022-10-16] MEDS ORDERED: LACT10SO3 PO (12:43)
[2022-10-16] MEDS ORDERED: HYDR-3972 PO (12:43)
== END 2022-10-16 13:00 | disposition home or self-care (01) ==
LOC: ER 10:32
DX: K42.9 Umbilical hernia without obstruction or gangrene (principal); M54.50 Low back pain, unspecified; K59.00 Constipation, unspecified; I10 Essential (primary) hypertension; J44.9 Chronic obstructive pulmonary disease, unspecified; E03.9 Hypothyroidism, unspecified; Z79.899 Other long term (current) drug therapy; Z79.1 Long term (current) use of non-steroidal anti-inflammatories (NSAID); Z79.2 Long term (current) use of antibiotics
CPT/HCPCS: 36415; 80053; 81001; 85025; 99284